=== PATIENT | female | born 1965 ===

== ENCOUNTER 2021-04-29 18:51 | Inpatient (IN) | payer OTHER, SELFPAY ==
--- NOTE | ~2021-04-29 | MR_ITS ---
EXAMINATION: MR BRAIN WITHOUT AND WITH CONTRAST CLINICAL INFORMATION: White matter hypoattenuation. COMPARISON: None available. TECHNIQUE: MRI of the brain was obtained using routine sequences without and following the administration of 5.5 mL of Gadavist intravenous contrast. FINDINGS: There is a confluent, lobulated T2 hyperintense lesion within the periventricular/deep white matter of the left frontal lobe, measuring 3.4 x 1.3 x 1.4 cm. There is no T2 signal suppression on FLAIR imaging. This lesion is inherently T1 hypointense without associated susceptibility artifact or enhancement. Few additional scattered nonspecific periventricular and deep white matter T2 FLAIR hyperintensities. No overtly associated mass effect. There is a 0.6 cm T2 hyperintense cystic structure in the right anterior aspect of the sella turcica. No definitively demonstrated associated enhancement on limited evaluation. No focal restricted diffusion is demonstrated to suggest acute or subacute cerebral ischemia. No evidence of acute or chronic hemorrhagic products on heme-sensitive imaging. The ventricles are normal in morphology and size. No midline shift. No abnormalities of the posterior fossa with normal appearance of the brainstem and cerebellum. Normal arterial and venous vascular flow voids are present. No abnormal contrast enhancement. Normal, homogeneous marrow signal. Mild mucosal thickening of the paranasal sinuses. No signal abnormalities within the mastoids. MR/MR head/brain wo/w con IMPRESSION: 1. There is a 3.4 cm relatively well marginated T2 hyperintense lesion centered in the deep white matter of the left frontal lobe. No associated enhancement. The etiology of this lesion remains somewhat nonspecific. An underlying low-grade glioma is a distinct consideration. However, an atypical appearance of nonspecific white matter insult could also be considered. A giant tumefactive perivascular space is considered less likely given the lack of T2 FLAIR suppression. 2. No acute intracranial abnormalities. No abnormal intracranial enhancement. Few additional nonspecific scattered white matter changes.
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
[2021-04-29 22:10] VITALS: BMI 21.4
[2021-04-29] MEDS: Baclofen 10 MG TABLET 5 MG PO (22:50)
[2021-04-29] MEDS: Gabapentin 400 MG CAPSULE PO (22:51)
[2021-04-29] MEDS: LORazepam 1 MG TABLET PO (22:54)
[2021-04-29 23:29] VITALS: BP 121/62; PULSE 100; TEMP 37.1; O2SAT 97
[2021-04-30 06:00] VITALS: BP 113/57; PULSE 87; RESP 18; TEMP 35.9; O2SAT 99
[2021-04-30 07:15] LABS: MANUAL DIFF FLAG NO
[2021-04-30 07:24] LABS: Basophils Absolute Auto 0.1 X10*3/uL (0.0-0.2); Eosinophils Absolute Auto 0.3 X10*3/uL (0.0-0.4); Eosinophils Percent Auto 4.4 % (0-4); Hematocrit 38.2 % (37-47); Hemoglobin 13.3 g/dl (12.0-16.0); Imm Gran Abs Auto 0.04 X10*3/uL (0.00-0.03); Imm Gran Pct Auto 0.6 % (0.0-0.4); Lymphocytes Absolute Auto 1.9 X10*3/uL (1.2-4.9); Mean Corpuscular HGB Conc 34.8 g/dl (31.0-35.0); Mean Corpuscular Hemoglobin 32.7 pg (27.0-33.0); Mean Corpuscular Volume 93.9 fL (80-98); Mean Platelet Volume 9.4 fL (9.4-12.3); Monocytes Absolute Auto 0.6 X10*3/uL (0.1-1.2); Neutrophils Absolute Auto 3.3 X10*3/uL (2.0-8.3); Platelet Count 276 X10*3/uL (160-400); Red Blood Count 4.07 X10*6/uL (4.20-5.50); Red Cell Distribution Width 12.1 % (11.0-16.0); White Blood Count 6.2 X10*3/uL (4.8-10.8)
[2021-04-30 07:45] LABS: Alanine Aminotransferase 34 U/L (0-31); Albumin Level 4.1 g/dL (3.5-5.0); Alkaline Phosphatase 50 U/L (39-117); Anion Gap 13 (12-20); Aspartate Amino Transferase 23 U/L (5-31); Bilirubin Total 0.8 mg/dL (0.0-1.0); Blood Urea Nitrogen 18 mg/dL (9-16); Calcium 9.6 mg/dL (8.4-10.2); Carbon Dioxide 30 mmol/L (22-29); Chloride 100 mmol/L (96-108); Cholesterol 203 mg/dL; Creatinine Clr Calc Pharmacy 87.7; Estimated Glomerular Filt Rate > 60; Glucose Fasting 96 mg/dL (60-99); HDL Cholesterol 64 mg/dL; LDL Cholesterol Calculated 130 mg/dl; Potassium 4.6 mmol/L (3.3-5.1); Sodium 138 mmol/L (135-145); Total Protein 6.4 g/dL (6.5-8.0); Triglycerides 48 mg/dL
[2021-04-30 08:38] LABS: Estimated Average Glucose 103 mg/dL; Hemoglobin A1c % 5.2 %
[2021-04-30] MEDS: Baclofen 10 MG TABLET 5 MG PO ×3 (08:57→21:32)
[2021-04-30] MEDS: Gabapentin 400 MG CAPSULE PO ×3 (08:57→21:32)
[2021-04-30] MEDS: QUEtiapine Fumarate 25 MG TABLET PO (08:57)
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
[2021-04-30] MEDS: DULoxetine HCl 20 MG CAPSULE.DR PO (21:32)
[2021-05-01] MEDS: traZODone HCL 50 MG TABLET PO (02:40)
[2021-05-01 06:00] VITALS: BP 110/57; PULSE 95; RESP 16; TEMP 36.8; O2SAT 97
[2021-05-01] MEDS: QUEtiapine Fumarate 25 MG TABLET PO (09:15)
[2021-05-01] MEDS: Gabapentin 400 MG CAPSULE PO ×3 (09:15→21:37)
[2021-05-01] MEDS: Baclofen 10 MG TABLET 5 MG PO ×3 (09:15→21:37)
--- NOTE | 2021-05-01 10:26 | CONS_ITS ---
DATE OF SERVICE: 04/30/2021 REASON FOR CONSULTATION: Medical management for numbness, tingling, and photophobia. HISTORY OF PRESENTING ILLNESS: This is a 55-year-old female patient with past medical history of anxiety, PTSD, and status post hysterectomy due to endometrial hyperplasia who was discharged from [facility] after requiring inpatient hospitalization due to overdose on multiple medications including gabapentin, baclofen, and Seroquel. The patient was subsequently extubated. During hospitalization, she had multiple electrolyte abnormalities including hypernatremia, hypokalemia, and leukocytosis. A CAT scan of the head showed a focal periventricular white matter hypoattenuation in the left frontal lobe. The patient was recommended to undergo MRI brain for followup, but however she declined due to claustrophobia. The patient has been transferred to [facility] due to depression, suicidal ideation with underlying history of anxiety and PTSD. At the present time, the patient is complaining of photophobia and she is complaining of tingling in different parts of the body at different times. She feels cellphone and the light makes her feel hot and that is why she is trying to hide in her room. She at times also gets headaches due to exposure to cell phones. She denies underlying medical history of asthma or diabetes. PAST MEDICAL HISTORY: 1. Recent hospitalization to [facility] for suicidal ideation, status post intubation, was extubated on 04/22/2021 to general medical floor. Once the patient was medically stable, she has been transferred to . 2. History of anxiety. 3. History of PTSD. 4. History of endometrial hyperplasia, status post hysterectomy. MEDICATIONS ON ADMISSION: Baclofen 5 mg t.i.d., Cymbalta 20 mg daily, Neurontin 400 mg t.i.d., and Seroquel 25 mg daily. SOCIAL HISTORY: The patient denies history of smoking. She lives alone. 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 Denies any substance abuse. FAMILY HISTORY: The patient denies any family history of premature coronary artery disease. ALLERGIES: NO KNOWN DRUG ALLERGIES. REVIEW OF SYSTEMS: LIBRARY TECHNICIAN: Headaches only when exposed to cell phones or lights. No dizziness. CVS: Denies any chest pain or palpitation. RESPIRATORY: Denies any cough or sputum production. GI: Denies nausea, vomiting, or diarrhea. PHYSICAL EXAMINATION: GENERAL: The patient is sitting comfortably. Does not offer any acute complaints. VITAL SIGNS: Her blood pressure is 113/57, pulse of 87, respiratory rate 18, temp is 96.6, and O2 saturation 99% on room air. NECK: Supple. No JVD. No lymphadenopathy. LUNGS: Clear to auscultation bilaterally. CARDIOVASCULAR: Regular rate rhythm. No murmurs, regurg, or gallop. ABDOMEN: Soft and nontender. Bowel sounds are audible. MUSCULOSKELETAL: Normal ankle, knee, and elbow examination. No musculoskeletal deformity or swelling noted. NEUROLOGICAL: Speech is clear. No motor or sensory deficit noted. EXTREMITIES: No clubbing, cyanosis, or edema. SKIN: Without any rash. LABORATORY DATA: Showed a WBC 6.2, hemoglobin 13.3, hematocrit 38.2, and platelets 276. Sodium 138, potassium 4.6, bicarb 30, BUN 18, and creatinine of 0.64. Hemoglobin A1c 5.2. ALT 34, total cholesterol 203, and LDL 130. ASSESSMENT AND PLAN: 1. 55-year-old female patient with past medical history of anxiety and post-traumatic stress disorder, admitted to [facility] for suspected overdose on gabapentin, baclofen, and Seroquel. Status post intubation for airway protection. Subsequently, extubated on 04/22/2021, and once medically cleared, has been transferred to psychiatric floor for continued monitoring and treatment for her anxiety. 2. Numbness, increased light sensitivity and warmth intermittently in different parts of the body. Question related to her anxiety since the patient had an abnormal head CAT scan that showed periventricular white matter at hypoattenuation in the left frontal lobe. Therefore, we will obtain an MRI brain with and without contrast to rule out underlying demyelinating disease. Other differential includes white matter infarction. The patient is agreeing to undergo MRI with use of Ativan. The patient will also need a neurological evaluation. Otherwise, case discussed with Psych provider to continue current medications including gabapentin and Seroquel. 3. electrolytes currently are stable. Therefore, no further workup is warranted at this time. 4. Deep vein thrombosis prophylaxis. Recommended early ambulation. Thank you for allowing us to participate in the care of this patient. MD BRETT Martin/MILLIE / [id number] MTDEsther
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
[2021-05-01] MEDS: LORazepam 1 MG TABLET 2 MG PO (16:17)
[2021-05-01 18:00] VITALS: BP 119/69; PULSE 114; RESP 16; O2SAT 100
[2021-05-01] MEDS: Melatonin 3 MG TABLET 6 MG PO (21:35)
[2021-05-01] MEDS: OLANZapine ODT 10 MG TAB.RAPDIS 5 MG TRANSLINGU (21:35)
[2021-05-01] MEDS: DULoxetine HCl 20 MG CAPSULE.DR PO (21:36)
[2021-05-02 06:00] VITALS: BP 133/76; PULSE 123; RESP 16; O2SAT 98
[2021-05-02] MEDS: Gabapentin 400 MG CAPSULE PO ×3 (09:40→23:00)
[2021-05-02] MEDS: Baclofen 10 MG TABLET 5 MG PO ×3 (09:40→23:00)
[2021-05-02] MEDS: OLANZapine ODT 10 MG TAB.RAPDIS 5 MG TRANSLINGU ×2 (09:41→22:59)
--- NOTE | 2021-05-02 20:06 | HO.PSYCHPN ---
Subjective Subjective Date of Service: 05/02/21 Reason For Visit: Uspecified Depressive Disorder Interim History: Amairani was preoccupied with the lighting and the ways in which she is affected by cell phones and computers. She has no insight into her condition. She is taking zyprexa Medication Compliance: Yes Side effects from medications: No Mental Status Exam Mental Status Exam Narrative: Appearance: casually groomed, fair hygiene, in NAD Behavior: calm, cooperative, minimal eye contact due to light sensitivity Psychomotor: no agitation or retardation noted Speech: clear, normal rate/rhythm/volume, spontaneous TP: linear TC: somatic delusions of effects of electromagnetic field sensitivity Mood: anxious Affect:congruent SI:denies HI:denies AH/VH:denies Delusions:somatic delusions Insight/judgment:poor x 2. Memory/cog: alert, oriented x 3. impaired due to psychiatric symptoms. Thought Content: negative for Suicidal Ideation and negative for Homicidal Ideation Diagnostics Vital Signs (24Hr): Vital Signs - 24 hr 05/02/21 06:00 Pulse Rate 123 H Respiratory Rate 16 Blood Pressure 133/76 Pulse Oximetry 98 Body Mass Index 21.4 Labs Results: 04/30/21 07:03 04/30/21 07:03 Imaging Radiology Impressions: ITS Impressions Brain MRI 05/01/21 17:39 IMPRESSION: 1. There is a 3.4 cm relatively well marginated T2 hyperintense lesion centered in the deep white matter of the left frontal lobe. No associated enhancement. The etiology of this lesion remains somewhat nonspecific. An underlying low-grade glioma is a distinct consideration. However, an atypical appearance of nonspecific white matter insult could also be considered. A giant tumefactive perivascular space is considered less likely given the lack of T2 FLAIR suppression. 2. No acute intracranial abnormalities. No abnormal intracranial enhancement. Few additional nonspecific scattered white matter changes. Medications Medications Current Medications Generic Name Dose Route Start Last Admin Trade Name Freq PRN Reason Stop Dose Admin Acetaminophen 650 mg 04/29/21 20:50 Acetaminophen 325 Mg Tablet PO Q6H PRN Headache/Pain Mild Scale (1-3) Al Hydroxide/Mg Hydroxide 30 ml 04/29/21 20:50 Magnesium Hydrox/Alum Hydrox 30 Ml Oral.Susp PO Q6H PRN Heartburn/Nausea Baclofen 5 mg 04/29/21 21:00 05/02/21 14:29 Baclofen 10 Mg Tablet PO 5 mg TID TERRI Administration Bisacodyl 10 mg 04/29/21 22:04 Bisacodyl 10 Mg Supp.Rect HI BID PRN Constipation Clonazepam 0.5 mg 05/01/21 21:00 05/02/21 09:42 Clonazepam 0.5 Mg Tablet PO Not Given BID TERRI Docusate Sodium 100 mg 04/29/21 22:05 Docusate Sodium 100 Mg/10 Ml Liquid PO BID PRN Constipation Duloxetine HCl 20 mg 04/30/21 21:00 05/01/21 21:36 Duloxetine Hcl 20 Mg Capsule.Dr PO 20 mg BEDTIME TERRI Administration Gabapentin 400 mg 04/30/21 09:00 05/02/21 14:30 Gabapentin 400 Mg Capsule PO 400 mg TID TERRI Administration Hydroxyzine HCl 25 mg 04/29/21 20:50 Hydroxyzine Hcl 25 Mg Tablet PO BEDTIME PRN Anxiety Lorazepam 1 mg 04/29/21 20:52 04/29/21 22:54 Lorazepam 1 Mg Tablet PO 1 mg Q4H PRN Administration Anxiety Magnesium Hydroxide 30 ml 04/29/21 20:50 Milk Of Magnesia 30 Ml Oral.Susp PO DAILY PRN Constipation Melatonin 6 mg 05/01/21 21:00 05/01/21 21:35 Melatonin 3 Mg Tablet PO 6 mg BEDTIME TERRI Administration Nicotine Polacrilex 2 mg 04/29/21 20:50 Nicotine Polacrilex 2 Mg Gum BUCCAL Q2H PRN Nicotine Cravings Patient Own 1 each 04/30/21 21:00 05/02/21 15:45 Medication (Retaine EYE-BOTH 1 each Eye Drops) TID TERRI Administration Olanzapine 5 mg 05/01/21 21:00 05/02/21 09:41 Olanzapine Odt 10 Mg Tab.Rapdis TRANSLINGU 5 mg BID TERRI Administration Trazodone HCl 50 mg 04/29/21 20:50 05/01/21 02:40 Trazodone Hcl 50 Mg Tablet PO 50 mg BEDTIME PRN Administration Insomnia Allergies Allergies Allergy/AdvReac Type Severity Reaction Status Date / Time Unable to Assess Allergy Verified 04/29/21 20:49 Assessment & Plan Assessment & Plan (1) Delusional disorder, somatic type, first episode, currently in acute episode: Status: Acute Code(s): F22 - Delusional disorders Assessment and Plan: No change to current treatment plan Greater than 50% of the session was spent on counseling and/or coordination of care Patient educated on: diagnosis and medication risk/benefits Informed Consent: does not understand Reason for contiued inpatient stay Substantial Risk for: inability to function
[2021-05-02] MEDS: Melatonin 3 MG TABLET 6 MG PO (22:58)
[2021-05-02] MEDS: DULoxetine HCl 20 MG CAPSULE.DR PO (23:00)
--- NOTE | 2021-05-02 23:13 | PC.NURSE ---
has declined klonopin x 2 evenings.
[2021-05-02 23:18] VITALS: BP 116/66; PULSE 100; TEMP 36.5; O2SAT 95
[2021-05-03 06:00] VITALS: BP 100/49; PULSE 105; RESP 16; TEMP 36.7; O2SAT 98
[2021-05-03] MEDS: Gabapentin 400 MG CAPSULE PO ×3 (10:06→22:54)
[2021-05-03] MEDS: OLANZapine ODT 10 MG TAB.RAPDIS 5 MG TRANSLINGU ×2 (10:06→22:54)
[2021-05-03] MEDS: Baclofen 10 MG TABLET 5 MG PO ×3 (10:06→22:56)
[2021-05-03] MEDS: clonazePAM 0.5 MG TABLET PO (10:54)
--- NOTE | 2021-05-03 18:30 | HO.PSYCHPN ---
Subjective Subjective Date of Service: 05/03/21 Reason For Visit: Uspecified Depressive Disorder Interim History: Amairani remains preoccupied with her concerns about light and electromagnetic peterson. She did enjoy a visit from her family. Abnormalities in MRI noted Neuro consult pending Medication Compliance: Yes Side effects from medications: No Review of Systems Acute medical concerns: No Medical Review of Systems: unchanged Mental Status Exam Mental Status Exam Narrative: Appearance: casually groomed, fair hygiene, in NAD Behavior: calm, cooperative, minimal eye contact due to light sensitivity Psychomotor: no agitation or retardation noted Speech: clear, normal rate/rhythm/volume, spontaneous TP: linear TC: somatic delusions of effects of electromagnetic field sensitivity Mood: anxious Affect:congruent SI:denies HI:denies AH/VH:denies Delusions:somatic delusions Insight/judgment:poor x 2. Memory/cog: alert, oriented x 3. impaired due to psychiatric symptoms. Thought Content: negative for Suicidal Ideation and negative for Homicidal Ideation Diagnostics Vital Signs (24Hr): Vital Signs - 24 hr 05/02/21 23:18 05/03/21 06:00 Temperature 97.7 F 98.1 F Pulse Rate 100 105 H Respiratory Rate 16 Blood Pressure 116/66 100/49 L Pulse Oximetry 95 98 Body Mass Index 21.4 Labs Results: 04/30/21 07:03 04/30/21 07:03 Imaging Radiology Impressions: ITS Impressions Brain MRI 05/01/21 17:39 IMPRESSION: 1. There is a 3.4 cm relatively well marginated T2 hyperintense lesion centered in the deep white matter of the left frontal lobe. No associated enhancement. The etiology of this lesion remains somewhat nonspecific. An underlying low-grade glioma is a distinct consideration. However, an atypical appearance of nonspecific white matter insult could also be considered. A giant tumefactive perivascular space is considered less likely given the lack of T2 FLAIR suppression. 2. No acute intracranial abnormalities. No abnormal intracranial enhancement. Few additional nonspecific scattered white matter changes. Medications Medications Current Medications Generic Name Dose Route Start Last Admin Trade Name Freq PRN Reason Stop Dose Admin Acetaminophen 650 mg 04/29/21 20:50 Acetaminophen 325 Mg Tablet PO Q6H PRN Headache/Pain Mild Scale (1-3) Al Hydroxide/Mg Hydroxide 30 ml 04/29/21 20:50 Magnesium Hydrox/Alum Hydrox 30 Ml Oral.Susp PO Q6H PRN Heartburn/Nausea Baclofen 5 mg 04/29/21 21:00 05/03/21 14:53 Baclofen 10 Mg Tablet PO 5 mg TID TERRI Administration Bisacodyl 10 mg 04/29/21 22:04 Bisacodyl 10 Mg Supp.Rect [place] BID PRN Constipation Clonazepam 0.5 mg 05/01/21 21:00 05/03/21 10:54 Clonazepam 0.5 Mg Tablet PO 0.5 mg BID TERRI Administration Docusate Sodium 100 mg 04/29/21 22:05 Docusate Sodium 100 Mg/10 Ml Liquid PO BID PRN Constipation Duloxetine HCl 20 mg 04/30/21 21:00 05/02/21 23:00 Duloxetine Hcl 20 Mg Capsule.Dr PO 20 mg BEDTIME TERRI Administration Gabapentin 400 mg 04/30/21 09:00 05/03/21 14:53 Gabapentin 400 Mg Capsule PO 400 mg TID TERRI Administration Hydroxyzine HCl 25 mg 04/29/21 20:50 Hydroxyzine Hcl 25 Mg Tablet PO BEDTIME PRN Anxiety Lorazepam 1 mg 04/29/21 20:52 04/29/21 22:54 Lorazepam 1 Mg Tablet PO 1 mg Q4H PRN Administration Anxiety Magnesium Hydroxide 30 ml 04/29/21 20:50 Milk Of Magnesia 30 Ml Oral.Susp PO DAILY PRN Constipation Melatonin 6 mg 05/01/21 21:00 05/02/21 22:58 Melatonin 3 Mg Tablet PO 6 mg BEDTIME TERRI Administration Nicotine Polacrilex 2 mg 04/29/21 20:50 Nicotine Polacrilex 2 Mg Gum BUCCAL Q2H PRN Nicotine Cravings Patient Own 1 each 04/30/21 21:00 05/03/21 14:54 Medication (Retaine EYE-BOTH 1 each Eye Drops) TID TERRI Administration Olanzapine 5 mg 05/01/21 21:00 05/03/21 10:06 Olanzapine Odt 10 Mg Tab.Rapdis TRANSLINGU 5 mg BID TERRI Administration Trazodone HCl 50 mg 04/29/21 20:50 05/01/21 02:40 Trazodone Hcl 50 Mg Tablet PO 50 mg BEDTIME PRN Administration Insomnia Allergies Allergies Allergy/AdvReac Type Severity Reaction Status Date / Time Unable to Assess Allergy Verified 04/29/21 20:49 Assessment & Plan Assessment & Plan (1) Delusional disorder, somatic type, first episode, currently in acute episode: Status: Acute Code(s): F22 - Delusional disorders Assessment and Plan: No change to current treatment plan Greater than 50% of the session was spent on counseling and/or coordination of care Patient educated on: diagnosis and medication risk/benefits Reason for contiued inpatient stay Substantial Risk for: inability to function and rapid decompensation
[2021-05-03] MEDS: Melatonin 3 MG TABLET 6 MG PO (22:55)
[2021-05-03] MEDS: DULoxetine HCl 20 MG CAPSULE.DR PO (22:56)
[2021-05-03 22:59] VITALS: TEMP 36.7
--- NOTE | 2021-05-04 07:15 | HO.PSYCHPN ---
Subjective Subjective Date of Service: 05/05/21 Reason For Visit: Uspecified Depressive Disorder Interim History: Amairani reports that she has tried to be more visible in the unit but light sensitivity is severe. She reports in terms of mood she feels less anxious. She is also superficially cooperative in that she may be minimizing degree of distress due to her ongoing believe that she is being attack by electromagnetic peterson. She denies SI/HI. Sister voices safety concerns in terms of pt not forthcoming about suicidal thoughts and feeling more hopeless than she may admit. Review of Systems Cardiovascular: Denies chest pain, Denies rapid heart rate, Denies irregular heart rhythm, Denies lightheadedness and Denies dyspnea Respiratory: Denies dyspnea Gastrointestinal: Denies constipation and Denies diarrhea Musculoskeletal: Reports numbness and Reports tingling Reports numbness, Reports Other visual disturbances (light sensitivity), Reports tingling and Reports paresthesias Mental Status Exam Mental Status Exam Narrative: Appearance: casually groomed, fair hygiene, in NAD Behavior: calm, cooperative, minimal eye contact due to light sensitivity Psychomotor: no agitation or retardation noted Speech: clear, normal rate/rhythm/volume, spontaneous TP: linear TC: somatic delusions of effects of electromagnetic field sensitivity Mood: anxious Affect:congruent SI:denies HI:denies AH/VH:denies Delusions:somatic delusions Insight/judgment:poor x 2. Memory/cog: alert, oriented x 3. impaired due to psychiatric symptoms. Diagnostics Vital Signs (24Hr): Vital Signs - 24 hr 05/04/21 08:56 05/04/21 18:00 Temperature 97.0 F 98.3 F Pulse Rate 105 H 91 Respiratory Rate 18 24 H Blood Pressure 115/63 100/62 Pulse Oximetry 97 99 Body Mass Index 21.4 Labs Results: 04/30/21 07:03 04/30/21 07:03 Imaging Radiology Impressions: ITS Impressions Brain MRI 05/01/21 17:39 IMPRESSION: 1. There is a 3.4 cm relatively well marginated T2 hyperintense lesion centered in the deep white matter of the left frontal lobe. No associated enhancement. The etiology of this lesion remains somewhat nonspecific. An underlying low-grade glioma is a distinct consideration. However, an atypical appearance of nonspecific white matter insult could also be considered. A giant tumefactive perivascular space is considered less likely given the lack of T2 FLAIR suppression. 2. No acute intracranial abnormalities. No abnormal intracranial enhancement. Few additional nonspecific scattered white matter changes. Medications Medications Current Medications Generic Name Dose Route Start Last Admin Trade Name Freq PRN Reason Stop Dose Admin Acetaminophen 650 mg 04/29/21 20:50 Acetaminophen 325 Mg Tablet PO Q6H PRN Headache/Pain Mild Scale (1-3) Al Hydroxide/Mg Hydroxide 30 ml 04/29/21 20:50 Magnesium Hydrox/Alum Hydrox 30 Ml Oral.Susp PO Q6H PRN Heartburn/Nausea Baclofen 5 mg 04/29/21 21:00 05/04/21 21:29 Baclofen 10 Mg Tablet PO 5 mg TID TERRI Administration Bisacodyl 10 mg 04/29/21 22:04 Bisacodyl 10 Mg Supp.Rect [place] BID PRN Constipation Clonazepam 0.5 mg 05/01/21 21:00 05/04/21 21:37 Clonazepam 0.5 Mg Tablet PO Not Given BID TERRI Docusate Sodium 100 mg 04/29/21 22:05 Docusate Sodium 100 Mg/10 Ml Liquid PO BID PRN Constipation Duloxetine HCl 20 mg 04/30/21 21:00 05/04/21 21:28 Duloxetine Hcl 20 Mg Capsule.Dr PO 20 mg BEDTIME TERRI Administration Gabapentin 400 mg 04/30/21 09:00 05/04/21 21:30 Gabapentin 400 Mg Capsule PO 400 mg TID TERRI Administration Hydroxyzine HCl 25 mg 04/29/21 20:50 Hydroxyzine Hcl 25 Mg Tablet PO BEDTIME PRN Anxiety Magnesium Hydroxide 30 ml 04/29/21 20:50 Milk Of Magnesia 30 Ml Oral.Susp PO DAILY PRN Constipation Melatonin 6 mg 05/01/21 21:00 05/04/21 21:28 Melatonin 3 Mg Tablet PO 6 mg BEDTIME TERRI Administration Nicotine Polacrilex 2 mg 04/29/21 20:50 Nicotine Polacrilex 2 Mg Gum BUCCAL Q2H PRN Nicotine Cravings Patient Own 1 each 04/30/21 21:00 05/04/21 21:30 Medication (Retaine EYE-BOTH 1 each Eye Drops) TID TERRI Administration Olanzapine 5 mg 05/01/21 21:00 05/04/21 21:28 Olanzapine Odt 10 Mg Tab.Rapdis TRANSLINGU 5 mg BID TERRI Administration Trazodone HCl 50 mg 04/29/21 20:50 05/05/21 02:00 Trazodone Hcl 50 Mg Tablet PO 50 mg BEDTIME PRN Administration Insomnia Allergies Allergies Allergy/AdvReac Type Severity Reaction Status Date / Time Unable to Assess Allergy Verified 04/29/21 20:49 Assessment & Plan Assessment & Plan (1) Delusional disorder, somatic type, first episode, currently in acute episode: Status: Acute Code(s): F22 - Delusional disorders Assessment and Plan: 1. continue current medications 2. pending neurology consult Greater than 50% of the session was spent on counseling and/or coordination of care Reason for contiued inpatient stay Substantial Risk for: harm to self
[2021-05-04 08:56] VITALS: BP 115/63; PULSE 105; RESP 18; TEMP 36.1; O2SAT 97
[2021-05-04] MEDS: Baclofen 10 MG TABLET 5 MG PO ×3 (09:00→21:29)
[2021-05-04] MEDS: Gabapentin 400 MG CAPSULE PO ×3 (09:00→21:30)
[2021-05-04] MEDS: OLANZapine ODT 10 MG TAB.RAPDIS 5 MG TRANSLINGU ×2 (09:00→21:28)
[2021-05-04] MEDS: clonazePAM 0.5 MG TABLET PO (09:01)
[2021-05-04 18:00] VITALS: BP 100/62; PULSE 91; RESP 24; TEMP 36.8; O2SAT 99
[2021-05-04] MEDS: DULoxetine HCl 20 MG CAPSULE.DR PO (21:28)
[2021-05-04] MEDS: Melatonin 3 MG TABLET 6 MG PO (21:28)
[2021-05-05] MEDS: traZODone HCL 50 MG TABLET PO (02:00)
[2021-05-05] MEDS: Gabapentin 400 MG CAPSULE PO ×3 (08:27→22:37)
[2021-05-05] MEDS: OLANZapine ODT 10 MG TAB.RAPDIS 5 MG TRANSLINGU ×2 (08:27→22:35)
[2021-05-05] MEDS: Baclofen 10 MG TABLET 5 MG PO ×3 (08:27→22:37)
[2021-05-05] MEDS: clonazePAM 0.5 MG TABLET PO (08:29)
--- NOTE | 2021-05-05 09:12 | HO.PSYCHPN ---
Subjective Subjective Date of Service: 05/07/21 Reason For Visit: Uspecified Depressive Disorder Interim History: Amairani reports that she continues to experience light sensitivity/dry eyes, which pt reports is worse with olanzapine. She reports tingling all over her body. She reports in terms of mood she is calmer, less overwhelmed but worries if she stays here in hospital longer, electromagnetic sensitivity will get worse. She states her physical symptoms are due to electric waves attacking her body. She denies SI/HI. She reports she had gun license for several years but does not have a gun. Review of Systems Review of Systems As detailed in her previous history is Cardiovascular: Denies chest pain, Denies rapid heart rate, Denies irregular heart rhythm, Denies lightheadedness and Denies dyspnea Respiratory: Denies dyspnea Gastrointestinal: Denies constipation and Denies diarrhea Musculoskeletal: Reports numbness and Reports tingling Reports numbness, Reports Other visual disturbances (light sensitivity), Reports tingling and Reports paresthesias Mental Status Exam Mental Status Exam Narrative: Appearance: casually groomed, fair hygiene, in NAD Behavior: calm, cooperative, minimal eye contact due to light sensitivity Psychomotor: no agitation or retardation noted Speech: clear, normal rate/rhythm/volume, spontaneous TP: linear TC: somatic delusions of effects of electromagnetic field sensitivity Mood: anxious Affect:congruent SI:denies HI:denies AH/VH:denies Delusions:somatic delusions Insight/judgment:poor x 2. Memory/cog: alert, oriented x 3. impaired due to psychiatric symptoms. Diagnostics Vital Signs (24Hr): Vital Signs - 24 hr 05/06/21 21:33 05/07/21 06:00 Pulse Rate 105 H 83 Respiratory Rate 20 16 Blood Pressure 114/57 L 105/60 Pulse Oximetry 97 97 Body Mass Index 21.4 Labs Results: 04/30/21 07:03 04/30/21 07:03 Imaging Radiology Impressions: ITS Impressions Brain MRI 05/01/21 17:39 IMPRESSION: 1. There is a 3.4 cm relatively well marginated T2 hyperintense lesion centered in the deep white matter of the left frontal lobe. No associated enhancement. The etiology of this lesion remains somewhat nonspecific. An underlying low-grade glioma is a distinct consideration. However, an atypical appearance of nonspecific white matter insult could also be considered. A giant tumefactive perivascular space is considered less likely given the lack of T2 FLAIR suppression. 2. No acute intracranial abnormalities. No abnormal intracranial enhancement. Few additional nonspecific scattered white matter changes. Medications Medications Current Medications Generic Name Dose Route Start Last Admin Trade Name Freq PRN Reason Stop Dose Admin Acetaminophen 650 mg 04/29/21 20:50 Acetaminophen 325 Mg Tablet PO Q6H PRN Headache/Pain Mild Scale (1-3) Al Hydroxide/Mg Hydroxide 30 ml 04/29/21 20:50 Magnesium Hydrox/Alum Hydrox 30 Ml Oral.Susp PO Q6H PRN Heartburn/Nausea Baclofen 5 mg 04/29/21 21:00 05/06/21 22:05 Baclofen 10 Mg Tablet PO 5 mg TID TERRI Administration Bisacodyl 10 mg 04/29/21 22:04 Bisacodyl 10 Mg Supp.Rect [place] BID PRN Constipation Docusate Sodium 100 mg 04/29/21 22:05 Docusate Sodium 100 Mg/10 Ml Liquid PO BID PRN Constipation Gabapentin 400 mg 04/30/21 09:00 05/06/21 22:06 Gabapentin 400 Mg Capsule PO 400 mg TID TERRI Administration Haloperidol 2 mg 05/07/21 09:00 Haloperidol 1 Mg Tablet PO BID TERRI Hydroxyzine HCl 25 mg 04/29/21 20:50 Hydroxyzine Hcl 25 Mg Tablet PO BEDTIME PRN Anxiety Magnesium Hydroxide 30 ml 04/29/21 20:50 Milk Of Magnesia 30 Ml Oral.Susp PO DAILY PRN Constipation Melatonin 6 mg 05/01/21 21:00 05/06/21 22:05 Melatonin 3 Mg Tablet PO 6 mg BEDTIME TERRI Administration Nicotine Polacrilex 2 mg 04/29/21 20:50 Nicotine Polacrilex 2 Mg Gum BUCCAL Q2H PRN Nicotine Cravings Patient Own 1 each 04/30/21 21:00 05/06/21 22:06 Medication (Retaine EYE-BOTH 1 each Eye Drops) TID TERRI Administration Trazodone HCl 50 mg 04/29/21 20:50 05/05/21 02:00 Trazodone Hcl 50 Mg Tablet PO 50 mg BEDTIME PRN Administration Insomnia Allergies Allergies Allergy/AdvReac Type Severity Reaction Status Date / Time Unable to Assess Allergy Verified 04/29/21 20:49 Assessment & Plan Assessment & Plan (1) Brain lesion: Status: Acute Code(s): G93.9 - Disorder of brain, unspecified Assessment and Plan: 55 years old woman with incidental finding of a left hemispheric brain lesion. As outlined in Radiology report, it was nonspecific in nature with multiple possibilities. At the same time it was relatively clear that this was a chronic lesion. A chronic ischemic infarction was also a possibility. In any case this lesion was not symptomatic and not the cause of her problems. Otherwise there was no significant finding on brain imaging. Typical recommendation for this type of lesion is to repeat brain scan in a year time, at least couple of times. After that, if lesion does not change, imaging can be done less frequently. No immediate action is needed on this finding at this time. Greater than 50% of the session was spent on counseling and/or coordination of care Reason for contiued inpatient stay Substantial Risk for: harm to self and inability to function
[2021-05-05 10:52] VITALS: BP 110/56; PULSE 112
[2021-05-05] MEDS: DULoxetine HCl 20 MG CAPSULE.DR PO (22:36)
[2021-05-05] MEDS: Melatonin 3 MG TABLET 6 MG PO (22:36)
[2021-05-05 22:52] VITALS: BP 100/58; PULSE 105; TEMP 36.9; O2SAT 99
[2021-05-06 09:03] VITALS: BP 106/62; PULSE 60; RESP 16; TEMP 37.1; O2SAT 97
--- NOTE | 2021-05-06 09:16 | HO.PSYCHPN ---
Subjective Subjective Date of Service: 05/07/21 Reason For Visit: Uspecified Depressive Disorder Interim History: Amairani continues to stay in bed, she reports not being able to go to unit because of light sensitivity. She also reports dry eyes. She asked for warm compresses- she does have blepharitis. She continues to report that electromagnetic sensitivity is cause of her physical symptoms. She does not want to be around cell phones, or computers, or electrical towers. She denies SI/HI. We discussed switching olanzapine to haldol due to increase s/e of anticholinergic and switch to antipsychotic with less anticholigernic s/e. Review of Systems Review of Systems As detailed in her previous history is Cardiovascular: Denies chest pain, Denies rapid heart rate, Denies irregular heart rhythm, Denies lightheadedness and Denies dyspnea Respiratory: Denies dyspnea Gastrointestinal: Denies constipation and Denies diarrhea Musculoskeletal: Reports numbness and Reports tingling Reports numbness, Reports Other visual disturbances (light sensitivity), Reports tingling and Reports paresthesias Mental Status Exam Mental Status Exam Narrative: Appearance: casually groomed, fair hygiene, in NAD Behavior: calm, cooperative, minimal eye contact due to light sensitivity Psychomotor: no agitation or retardation noted Speech: clear, normal rate/rhythm/volume, spontaneous TP: linear TC: somatic delusions of effects of electromagnetic field sensitivity Mood: anxious Affect:congruent SI:denies HI:denies AH/VH:denies Delusions:somatic delusions Insight/judgment:poor x 2. Memory/cog: alert, oriented x 3. impaired due to psychiatric symptoms. Diagnostics Vital Signs (24Hr): Vital Signs - 24 hr 05/06/21 21:33 05/07/21 06:00 Pulse Rate 105 H 83 Respiratory Rate 20 16 Blood Pressure 114/57 L 105/60 Pulse Oximetry 97 97 Body Mass Index 21.4 Labs Results: 04/30/21 07:03 04/30/21 07:03 Imaging Radiology Impressions: ITS Impressions Brain MRI 05/01/21 17:39 IMPRESSION: 1. There is a 3.4 cm relatively well marginated T2 hyperintense lesion centered in the deep white matter of the left frontal lobe. No associated enhancement. The etiology of this lesion remains somewhat nonspecific. An underlying low-grade glioma is a distinct consideration. However, an atypical appearance of nonspecific white matter insult could also be considered. A giant tumefactive perivascular space is considered less likely given the lack of T2 FLAIR suppression. 2. No acute intracranial abnormalities. No abnormal intracranial enhancement. Few additional nonspecific scattered white matter changes. Medications Medications Current Medications Generic Name Dose Route Start Last Admin Trade Name Freq PRN Reason Stop Dose Admin Acetaminophen 650 mg 04/29/21 20:50 Acetaminophen 325 Mg Tablet PO Q6H PRN Headache/Pain Mild Scale (1-3) Al Hydroxide/Mg Hydroxide 30 ml 04/29/21 20:50 Magnesium Hydrox/Alum Hydrox 30 Ml Oral.Susp PO Q6H PRN Heartburn/Nausea Baclofen 5 mg 04/29/21 21:00 05/06/21 22:05 Baclofen 10 Mg Tablet PO 5 mg TID TERRI Administration Bisacodyl 10 mg 04/29/21 22:04 Bisacodyl 10 Mg Supp.Rect VA BID PRN Constipation Docusate Sodium 100 mg 04/29/21 22:05 Docusate Sodium 100 Mg/10 Ml Liquid PO BID PRN Constipation Gabapentin 400 mg 04/30/21 09:00 05/06/21 22:06 Gabapentin 400 Mg Capsule PO 400 mg TID TERRI Administration Haloperidol 2 mg 05/07/21 09:00 Haloperidol 1 Mg Tablet PO BID TERRI Hydroxyzine HCl 25 mg 04/29/21 20:50 Hydroxyzine Hcl 25 Mg Tablet PO BEDTIME PRN Anxiety Magnesium Hydroxide 30 ml 04/29/21 20:50 Milk Of Magnesia 30 Ml Oral.Susp PO DAILY PRN Constipation Melatonin 6 mg 05/01/21 21:00 05/06/21 22:05 Melatonin 3 Mg Tablet PO 6 mg BEDTIME TERRI Administration Nicotine Polacrilex 2 mg 04/29/21 20:50 Nicotine Polacrilex 2 Mg Gum BUCCAL Q2H PRN Nicotine Cravings Patient Own 1 each 04/30/21 21:00 05/06/21 22:06 Medication (Retaine EYE-BOTH 1 each Eye Drops) TID TERRI Administration Trazodone HCl 50 mg 04/29/21 20:50 05/05/21 02:00 Trazodone Hcl 50 Mg Tablet PO 50 mg BEDTIME PRN Administration Insomnia Allergies Allergies Allergy/AdvReac Type Severity Reaction Status Date / Time Unable to Assess Allergy Verified 04/29/21 20:49 Assessment & Plan Assessment & Plan (1) Brain lesion: Status: Acute Code(s): G93.9 - Disorder of brain, unspecified Assessment and Plan: 55 years old woman with incidental finding of a left hemispheric brain lesion. As outlined in Radiology report, it was nonspecific in nature with multiple possibilities. At the same time it was relatively clear that this was a chronic lesion. A chronic ischemic infarction was also a possibility. In any case this lesion was not symptomatic and not the cause of her problems. Otherwise there was no significant finding on brain imaging. Typical recommendation for this type of lesion is to repeat brain scan in a year time, at least couple of times. After that, if lesion does not change, imaging can be done less frequently. No immediate action is needed on this finding at this time. (2) Delusional disorder, somatic type, first episode, currently in acute episode: Status: Acute Code(s): F22 - Delusional disorders Assessment and Plan: 1. switch to haldol 2mg po BID. (3) Blepharitis: Status: Acute Code(s): H01.009 - Unspecified blepharitis unspecified eye, unspecified eyelid Greater than 50% of the session was spent on counseling and/or coordination of care Reason for contiued inpatient stay Substantial Risk for: harm to self and inability to function
[2021-05-06] MEDS: Baclofen 10 MG TABLET 5 MG PO ×3 (10:06→22:05)
[2021-05-06] MEDS: OLANZapine ODT 10 MG TAB.RAPDIS 5 MG TRANSLINGU (10:08)
[2021-05-06] MEDS: Gabapentin 400 MG CAPSULE PO ×3 (10:08→22:06)
--- NOTE | 2021-05-06 10:54 | PM.NEUROCN ---
History of Present Illness Data of Consult Service Date: 05/06/21 Primary Care Provider: Unknown Physician 55 years old woman I was asked to see for an abnormal brain MRI. She was admitted on psychiatric floor after she presented with suicidal attempt with multiple prescription medicines. There was no sign of any seizure disorder any focal weakness. Review of Systems Review of Systems: As detailed in her previous history is [facility] Social History Social History Household Members: None Household Members Other:: 0 Housing: Condominium Do you presently have visiting nurse or other home services: No Patient Tobacco Use Status: Never used Tobacco Smoked in Last 30 Days: No Patient Interested in Nicotine Replacement: No Patient Given Instructions on How to Stop Smoking: No Second Hand Smoke Exposure: No Use of substances other than those prescribed or required for medical reasons: No Substance Use Type Other:: 3 years ago jam Last Used Substance: Unknown Currently Displaying Signs/Symptoms of Drug Intoxication Withdrawal: No Other Past Substance Use Problem:: Over use of alcohol Any prior treatment program specific to substance use: No Have you been hit, kicked, punched, or otherwise hurt by someone within the past year? If so, by whom?: No Do you feel safe in your current relationship?: No Current Relationship Is there a partner from a previous relationship who is making you feel unsafe now?: No Are you made to feel afraid or neglected: No Spiritual Healthcare Practices: It's been a while, [employer]ond[employer]ational [employer] Healthcare Practices: None Cultural Healthcare Practices: None Advance Directives: No Advance Directives Information Provided: No Advance Directives on File: No Do you have thoughts of harming others: None Do you have a plan to hurt others: No Plan Recently lost weight without trying: Yes How much weight loss: 2-13 pounds Eating poorly because of decreased appetite: No Nutrition screen score: 3 Nutrition Risks: No Nutritional Risk Patient : No : No Poor oral hygiene: No service: No Sexual orientation: Straight/Heterosexual Meds Allergies Allergy/AdvReac Type Severity Reaction Status Date / Time Unable to Assess Allergy Verified 04/29/21 20:49 Active Medications: Current Medications Generic Name Dose Route Start Last Admin Trade Name Freq PRN Reason Stop Dose Admin Acetaminophen 650 mg 04/29/21 20:50 Acetaminophen 325 Mg Tablet PO Q6H PRN Headache/Pain Mild Scale (1-3) Al Hydroxide/Mg Hydroxide 30 ml 04/29/21 20:50 Magnesium Hydrox/Alum Hydrox 30 Ml Oral.Susp PO Q6H PRN Heartburn/Nausea Baclofen 5 mg 04/29/21 21:00 05/06/21 10:06 Baclofen 10 Mg Tablet PO 5 mg TID TERRI Administration Bisacodyl 10 mg 04/29/21 22:04 Bisacodyl 10 Mg Supp.Rect DE BID PRN Constipation Clonazepam 0.5 mg 05/01/21 21:00 05/06/21 10:08 Clonazepam 0.5 Mg Tablet PO Not Given BID TERRI Docusate Sodium 100 mg 04/29/21 22:05 Docusate Sodium 100 Mg/10 Ml Liquid PO BID PRN Constipation Duloxetine HCl 20 mg 04/30/21 21:00 05/05/21 22:36 Duloxetine Hcl 20 Mg Capsule.Dr PO 20 mg BEDTIME TERRI Administration Gabapentin 400 mg 04/30/21 09:00 05/06/21 10:08 Gabapentin 400 Mg Capsule PO 400 mg TID TERRI Administration Hydroxyzine HCl 25 mg 04/29/21 20:50 Hydroxyzine Hcl 25 Mg Tablet PO BEDTIME PRN Anxiety Magnesium Hydroxide 30 ml 04/29/21 20:50 Milk Of Magnesia 30 Ml Oral.Susp PO DAILY PRN Constipation Melatonin 6 mg 05/01/21 21:00 05/05/21 22:36 Melatonin 3 Mg Tablet PO 6 mg BEDTIME TERRI Administration Nicotine Polacrilex 2 mg 04/29/21 20:50 Nicotine Polacrilex 2 Mg Gum BUCCAL Q2H PRN Nicotine Cravings Patient Own 1 each 04/30/21 21:00 05/05/21 22:46 Medication (Retaine EYE-BOTH 1 each Eye Drops) TID TERRI Administration Olanzapine 5 mg 05/01/21 21:00 05/06/21 10:08 Olanzapine Odt 10 Mg Tab.Rapdis TRANSLINGU 5 mg BID TERRI Administration Trazodone HCl 50 mg 04/29/21 20:50 05/05/21 02:00 Trazodone Hcl 50 Mg Tablet PO 50 mg BEDTIME PRN Administration Insomnia Home Medications Medication Instructions Recorded Confirmed Last Taken Type Artificial Tears 2 drp INTRAOCULAR QID PRN 04/29/21 04/29/21 Unknown History Colace 100 mg PO BID PRN 04/29/21 04/29/21 Unknown History Oculocin 1 drp INTRAOCULAR BID 04/29/21 04/29/21 07:55 History Retaine VISION 1 drp INTRAOCULAR TID 04/29/21 04/29/21 04/29/21 07:55 History baclofen 5 mg PO TID 04/29/21 04/29/21 04/29/21 07:50 History bisacodyl 10 mg BID PRN 04/29/21 04/29/21 Unknown History duloxetine 20 mg PO DAILY 04/29/21 04/29/21 04/28/21 08:30 History gabapentin 400 mg PO TID 04/29/21 04/29/21 04/29/21 07:51 History melatonin 6 mg PO 04/29/21 Unknown History quetiapine 25 mg PO DAILY 04/29/21 04/29/21 04/29/21 07:50 History Physical Exam Vital Signs: Vital Signs: Last Vital Signs Temp 98.7 F 05/06/21 09:03 Pulse 60 05/06/21 09:03 Resp 16 05/06/21 09:03 BP 106/62 05/06/21 09:03 Pulse Ox 97 05/06/21 09:03 Body Mass Index 21.4 She was alert and awake with normal spontaneity of speech fluency comprehension and affect. Pupils were equal and reactive to light and extraocular muscles were intact. Visual peterson are full to confrontation. Face was symmetrical. There was no pronator drift. [id number] testing was normal. There was no visual or sensory or spatial extinction. Deep tendon reflexes 1+ with flexor plantars. Speech was normal. Results Labs CBC & Chem 7: 04/30/21 07:03 04/30/21 07:03 Labs: Her MRI of brain was reviewed. It revealed a moderate-size left frontal subcortical white matter area lesion that was hyperintense on T2 and hypo on T1 with no enhancement and isointense on DWI. Margins were distinct. There were couple of adjust sent punctate hyperintensities. Assessment and Plan (1) Brain lesion: Status: Acute 55 years old woman with incidental finding of a left hemispheric brain lesion. As outlined in Radiology report, it was nonspecific in nature with multiple possibilities. At the same time it was relatively clear that this was a chronic lesion. A chronic ischemic infarction was also a possibility. In any case this lesion was not symptomatic and not the cause of her problems. Otherwise there was no significant finding on brain imaging. Typical recommendation for this type of lesion is to repeat brain scan in a year time, at least couple of times. After that, if lesion does not change, imaging can be done less frequently. No immediate action is needed on this finding at this time. Procedures Date of Service Date of Service: 05/06/21
[2021-05-06 21:33] VITALS: BP 114/57; PULSE 105; RESP 20; O2SAT 97
[2021-05-06] MEDS: Melatonin 3 MG TABLET 6 MG PO (22:05)
[2021-05-07 06:00] VITALS: BP 105/60; PULSE 83; RESP 16; O2SAT 97
[2021-05-07] MEDS: HaloperidoL 1 MG TABLET 2 MG PO ×2 (09:37→21:36)
[2021-05-07] MEDS: Baclofen 10 MG TABLET 5 MG PO ×3 (09:37→21:37)
[2021-05-07] MEDS: Gabapentin 400 MG CAPSULE PO ×3 (09:38→21:36)
--- NOTE | 2021-05-07 11:39 | HO.PSYCHPN ---
Subjective Subjective Date of Service: 05/11/21 Reason For Visit: Uspecified Depressive Disorder Interim History: Pt reports tension of jaw, jittery two days after cymbalta was discontinued. She does appear to have some degree of dystonia, most likely related to haldol. Pt reports feeling anxious, not suicidal, continues to report electromagnetic sensitivity. She reports fair sleep. Mostly in her bed, minimally interactive with peers. No behavioral concerns. Review of Systems Review of Systems unremarkable Cardiovascular: Denies chest pain, Denies rapid heart rate, Denies irregular heart rhythm, Denies lightheadedness and Denies dyspnea Respiratory: Denies dyspnea Gastrointestinal: Denies constipation and Denies diarrhea Musculoskeletal: Reports numbness and Reports tingling Reports numbness, Reports Other visual disturbances (light sensitivity), Reports tingling and Reports paresthesias Mental Status Exam Mental Status Exam Narrative: Appearance: casually groomed, fair hygiene, in NAD Behavior: calm, cooperative, minimal eye contact due to light sensitivity Psychomotor: no agitation or retardation noted Speech: clear, normal rate/rhythm/volume, spontaneous TP: linear TC: somatic delusions of effects of electromagnetic field sensitivity Mood: anxious Affect:congruent SI:denies HI:denies AH/VH:denies Delusions:somatic delusions Insight/judgment:poor x 2. Memory/cog: alert, oriented x 3. impaired due to psychiatric symptoms. Diagnostics Vital Signs (24Hr): Vital Signs - 24 hr 05/10/21 20:26 Temperature 97.5 F Pulse Rate 98 Blood Pressure 111/57 L Pulse Oximetry 99 Body Mass Index 21.4 Labs Results: 04/30/21 07:03 04/30/21 07:03 Labs: Laboratory Results - last 48 hr 05/07/21 13:51 SS-A/Ro Antibody <1.0 NEG SS-B/La Antibody <1.0 NEG Imaging Radiology Impressions: ITS Impressions Brain MRI 05/01/21 17:39 IMPRESSION: 1. There is a 3.4 cm relatively well marginated T2 hyperintense lesion centered in the deep white matter of the left frontal lobe. No associated enhancement. The etiology of this lesion remains somewhat nonspecific. An underlying low-grade glioma is a distinct consideration. However, an atypical appearance of nonspecific white matter insult could also be considered. A giant tumefactive perivascular space is considered less likely given the lack of T2 FLAIR suppression. 2. No acute intracranial abnormalities. No abnormal intracranial enhancement. Few additional nonspecific scattered white matter changes. Medications Medications Current Medications Generic Name Dose Route Start Last Admin Trade Name Freq PRN Reason Stop Dose Admin Acetaminophen 650 mg 04/29/21 20:50 Acetaminophen 325 Mg Tablet PO Q6H PRN Headache/Pain Mild Scale (1-3) Al Hydroxide/Mg Hydroxide 30 ml 04/29/21 20:50 Magnesium Hydrox/Alum Hydrox 30 Ml Oral.Susp PO Q6H PRN Heartburn/Nausea Baclofen 5 mg 04/29/21 21:00 05/11/21 08:20 Baclofen 10 Mg Tablet PO 5 mg TID TERRI Administration Bisacodyl 10 mg 04/29/21 22:04 Bisacodyl 10 Mg Supp.Rect MD BID PRN Constipation Clonazepam 0.5 mg 05/08/21 21:00 05/11/21 08:20 Clonazepam 0.5 Mg Tablet PO 0.5 mg BID TERRI Administration Docusate Sodium 100 mg 04/29/21 22:05 Docusate Sodium 100 Mg/10 Ml Liquid PO BID PRN Constipation Gabapentin 400 mg 04/30/21 09:00 05/11/21 08:20 Gabapentin 400 Mg Capsule PO 400 mg TID TERRI Administration Hydroxyzine HCl 25 mg 04/29/21 20:50 Hydroxyzine Hcl 25 Mg Tablet PO BEDTIME PRN Anxiety Magnesium Hydroxide 30 ml 04/29/21 20:50 Milk Of Magnesia 30 Ml Oral.Susp PO DAILY PRN Constipation Melatonin 3 mg 05/10/21 21:00 05/10/21 21:26 Melatonin 3 Mg Tablet PO 3 mg BEDTIME TERRI Administration Melatonin 3 mg 05/10/21 11:50 Melatonin 3 Mg Tablet PO BEDTIME PRN insomnia Nicotine Polacrilex 2 mg 04/29/21 20:50 Nicotine Polacrilex 2 Mg Gum BUCCAL Q2H PRN Nicotine Cravings Patient Own 1 each 04/30/21 21:00 05/11/21 08:22 Medication (Retaine EYE-BOTH 1 each Eye Drops) TID TERRI Administration Patient Own 1 each 05/10/21 09:00 05/11/21 08:22 Medication (Oculosin EYE-BOTH 1 each 1 Drop) 0900,1700 TERRI Administration Patient Own 1 each 05/10/21 09:00 05/11/21 08:21 Medication ( PO 1 each Hydroeyes 2 Caps) 0900,1700 TERRI Administration Paliperidone 3 mg 05/08/21 21:00 05/10/21 21:27 Paliperidone Er 3 Mg Tab.Er.24 PO 3 mg BEDTIME TERRI Administration Trazodone HCl 50 mg 04/29/21 20:50 05/05/21 02:00 Trazodone Hcl 50 Mg Tablet PO 50 mg BEDTIME PRN Administration Insomnia Allergies Allergies Allergy/AdvReac Type Severity Reaction Status Date / Time Unable to Assess Allergy Verified 04/29/21 20:49 Assessment & Plan Assessment & Plan (1) Brain lesion: Status: Acute Code(s): G93.9 - Disorder of brain, unspecified Assessment and Plan: 55 years old woman with incidental finding of a left hemispheric brain lesion. As outlined in Radiology report, it was nonspecific in nature with multiple possibilities. At the same time it was relatively clear that this was a chronic lesion. A chronic ischemic infarction was also a possibility. In any case this lesion was not symptomatic and not the cause of her problems. Otherwise there was no significant finding on brain imaging. Typical recommendation for this type of lesion is to repeat brain scan in a year time, at least couple of times. After that, if lesion does not change, imaging can be done less frequently. No immediate action is needed on this finding at this time. (2) Delusional disorder, somatic type, first episode, currently in acute episode: Status: Acute Code(s): F22 - Delusional disorders Assessment and Plan: Switch haldol to paliperidone as haldol appeared to cause dystonia. (3) Blepharitis: Status: Acute Code(s): H01.009 - Unspecified blepharitis unspecified eye, unspecified eyelid Greater than 50% of the session was spent on counseling and/or coordination of care Reason for contiued inpatient stay Substantial Risk for: harm to self and inability to function
[2021-05-07 14:48] LABS: Erythrocyte Sedimentation Rate 11 MM/HR (0-20)
[2021-05-07 20:45] VITALS: BP 113/55; PULSE 80; RESP 16; TEMP 36.8; O2SAT 97
[2021-05-07] MEDS: Melatonin 3 MG TABLET 6 MG PO (21:35)
[2021-05-08 06:00] VITALS: BP 110/53; PULSE 82; RESP 16; O2SAT 97
[2021-05-08] MEDS: HaloperidoL 1 MG TABLET 2 MG PO (09:49)
[2021-05-08] MEDS: Baclofen 10 MG TABLET 5 MG PO ×3 (09:49→21:56)
[2021-05-08] MEDS: Gabapentin 400 MG CAPSULE PO ×3 (09:49→21:56)
[2021-05-08] MEDS: Cyproheptadine HCl 4 MG TABLET PO (10:43)
[2021-05-08] MEDS: clonazePAM 1 MG TABLET PO (10:43)
--- NOTE | 2021-05-08 11:36 | HO.PSYCHPN ---
Subjective Subjective Date of Service: 05/11/21 Reason For Visit: Uspecified Depressive Disorder Interim History: Pt presents as slightly calmer, continues to report electromagnetici sensitivity. She states she can't be around phones or electronics. She does report increase dryness of eyes with Olanzapine, which is less with haldol. She denies SI/HI. She has been mostly in her room, minimally interactive with peers. Review of Systems Review of Systems unremarkable Cardiovascular: Denies chest pain, Denies rapid heart rate, Denies irregular heart rhythm, Denies lightheadedness and Denies dyspnea Respiratory: Denies dyspnea Gastrointestinal: Denies constipation and Denies diarrhea Musculoskeletal: Reports numbness and Reports tingling Reports numbness, Reports Other visual disturbances (light sensitivity), Reports tingling and Reports paresthesias Mental Status Exam Mental Status Exam Narrative: Appearance: casually groomed, fair hygiene, in NAD Behavior: calm, cooperative, minimal eye contact due to light sensitivity Psychomotor: no agitation or retardation noted Speech: clear, normal rate/rhythm/volume, spontaneous TP: linear TC: somatic delusions of effects of electromagnetic field sensitivity Mood: anxious Affect:congruent SI:denies HI:denies AH/VH:denies Delusions:somatic delusions Insight/judgment:poor x 2. Memory/cog: alert, oriented x 3. impaired due to psychiatric symptoms. Diagnostics Vital Signs (24Hr): Vital Signs - 24 hr 05/10/21 20:26 Temperature 97.5 F Pulse Rate 98 Blood Pressure 111/57 L Pulse Oximetry 99 Body Mass Index 21.4 Labs Results: 04/30/21 07:03 04/30/21 07:03 Labs: Laboratory Results - last 48 hr 05/07/21 13:51 SS-A/Ro Antibody <1.0 NEG SS-B/La Antibody <1.0 NEG Imaging Radiology Impressions: ITS Impressions Brain MRI 05/01/21 17:39 IMPRESSION: 1. There is a 3.4 cm relatively well marginated T2 hyperintense lesion centered in the deep white matter of the left frontal lobe. No associated enhancement. The etiology of this lesion remains somewhat nonspecific. An underlying low-grade glioma is a distinct consideration. However, an atypical appearance of nonspecific white matter insult could also be considered. A giant tumefactive perivascular space is considered less likely given the lack of T2 FLAIR suppression. 2. No acute intracranial abnormalities. No abnormal intracranial enhancement. Few additional nonspecific scattered white matter changes. Medications Medications Current Medications Generic Name Dose Route Start Last Admin Trade Name Freq PRN Reason Stop Dose Admin Acetaminophen 650 mg 04/29/21 20:50 Acetaminophen 325 Mg Tablet PO Q6H PRN Headache/Pain Mild Scale (1-3) Al Hydroxide/Mg Hydroxide 30 ml 04/29/21 20:50 Magnesium Hydrox/Alum Hydrox 30 Ml Oral.Susp PO Q6H PRN Heartburn/Nausea Baclofen 5 mg 04/29/21 21:00 05/11/21 08:20 Baclofen 10 Mg Tablet PO 5 mg TID TERRI Administration Bisacodyl 10 mg 04/29/21 22:04 Bisacodyl 10 Mg Supp.Rect NM BID PRN Constipation Clonazepam 0.5 mg 05/08/21 21:00 05/11/21 08:20 Clonazepam 0.5 Mg Tablet PO 0.5 mg BID TERRI Administration Docusate Sodium 100 mg 04/29/21 22:05 Docusate Sodium 100 Mg/10 Ml Liquid PO BID PRN Constipation Gabapentin 400 mg 04/30/21 09:00 05/11/21 08:20 Gabapentin 400 Mg Capsule PO 400 mg TID TERRI Administration Hydroxyzine HCl 25 mg 04/29/21 20:50 Hydroxyzine Hcl 25 Mg Tablet PO BEDTIME PRN Anxiety Magnesium Hydroxide 30 ml 04/29/21 20:50 Milk Of Magnesia 30 Ml Oral.Susp PO DAILY PRN Constipation Melatonin 3 mg 05/10/21 21:00 05/10/21 21:26 Melatonin 3 Mg Tablet PO 3 mg BEDTIME TERRI Administration Melatonin 3 mg 05/10/21 11:50 Melatonin 3 Mg Tablet PO BEDTIME PRN insomnia Nicotine Polacrilex 2 mg 04/29/21 20:50 Nicotine Polacrilex 2 Mg Gum BUCCAL Q2H PRN Nicotine Cravings Patient Own 1 each 04/30/21 21:00 05/11/21 08:22 Medication (Retaine EYE-BOTH 1 each Eye Drops) TID TERRI Administration Patient Own 1 each 05/10/21 09:00 05/11/21 08:22 Medication (Oculosin EYE-BOTH 1 each 1 Drop) 0900,1700 TERRI Administration Patient Own 1 each 05/10/21 09:00 05/11/21 08:21 Medication ( PO 1 each Hydroeyes 2 Caps) 0900,1700 TERRI Administration Paliperidone 3 mg 05/08/21 21:00 05/10/21 21:27 Paliperidone Er 3 Mg Tab.Er.24 PO 3 mg BEDTIME TERRI Administration Trazodone HCl 50 mg 04/29/21 20:50 05/05/21 02:00 Trazodone Hcl 50 Mg Tablet PO 50 mg BEDTIME PRN Administration Insomnia Allergies Allergies Allergy/AdvReac Type Severity Reaction Status Date / Time Unable to Assess Allergy Verified 04/29/21 20:49 Assessment & Plan Assessment & Plan (1) Brain lesion: Status: Acute Code(s): G93.9 - Disorder of brain, unspecified Assessment and Plan: 55 years old woman with incidental finding of a left hemispheric brain lesion. As outlined in Radiology report, it was nonspecific in nature with multiple possibilities. At the same time it was relatively clear that this was a chronic lesion. A chronic ischemic infarction was also a possibility. In any case this lesion was not symptomatic and not the cause of her problems. Otherwise there was no significant finding on brain imaging. Typical recommendation for this type of lesion is to repeat brain scan in a year time, at least couple of times. After that, if lesion does not change, imaging can be done less frequently. No immediate action is needed on this finding at this time. (2) Delusional disorder, somatic type, first episode, currently in acute episode: Status: Acute Code(s): F22 - Delusional disorders Assessment and Plan: 05/10/2021: No changes as Invega just started 05/08 therefore continue with same (3) Blepharitis: Status: Acute Code(s): H01.009 - Unspecified blepharitis unspecified eye, unspecified eyelid Greater than 50% of the session was spent on counseling and/or coordination of care Reason for contiued inpatient stay Substantial Risk for: inability to function
[2021-05-08 18:00] VITALS: BP 90/51; PULSE 96; RESP 16; TEMP 36.6; O2SAT 98
[2021-05-08] MEDS: clonazePAM 0.5 MG TABLET PO (21:56)
[2021-05-08] MEDS: Paliperidone ER 3 MG TAB.ER.24 PO (21:56)
[2021-05-08] MEDS: Melatonin 3 MG TABLET 6 MG PO (21:56)
[2021-05-09 06:00] VITALS: BP 119/58; PULSE 110; RESP 20; TEMP 36.4; O2SAT 98
[2021-05-09] MEDS: Baclofen 10 MG TABLET 5 MG PO ×3 (09:22→21:26)
[2021-05-09] MEDS: Gabapentin 400 MG CAPSULE PO ×3 (09:23→21:26)
[2021-05-09] MEDS: clonazePAM 0.5 MG TABLET PO ×2 (09:23→21:26)
--- NOTE | 2021-05-09 13:35 | HO.PSYCHPN ---
Subjective Subjective Date of Service: 05/09/21 Reason For Visit: Uspecified Depressive Disorder Interim History: reports ongoing concerns around lights and electromagnetic sensitivity. Reports things have gotten worse here. Concern around medications but also open to continuing with Invega which was just started yesterday. Reports having tingling and numbing sensations in her head and upset and believes that people do not trust what she says. When outside of bedroom or other closed spaces, walks around with a pillow on her head chew to concerns around electromagnetic energy. Reports wanting to get improvement in mood and coping with medications and have outside therapist and prescriber and hopes to work with team around same Medication Compliance: Yes Review of Systems Review of Systems unremarkable Mental Status Exam Mental Status Exam Narrative: seen in sensory room. Pleasant. Casually dressed with poor self-care. Had a pillow over her head when walking from her bedroom to the sensory room. Does appear guarded. Endorses feeling depressed. No SI. No HI. Does appear to have sensory experiences and intense beliefs around electromagnetic concerns when combined likely delusional in nature. insight and judgment does appear limited Diagnostics Vital Signs (24Hr): Vital Signs - 24 hr 05/09/21 06:00 05/09/21 19:59 Temperature 97.6 F 98.2 F Pulse Rate 110 H 101 H Respiratory Rate 20 Blood Pressure 119/58 L 98/51 L Pulse Oximetry 98 98 Body Mass Index 21.4 Labs Results: 04/30/21 07:03 04/30/21 07:03 Labs: Laboratory Results - last 48 hr 05/07/21 13:51 SS-A/Ro Antibody <1.0 NEG SS-B/La Antibody <1.0 NEG Imaging Radiology Impressions: ITS Impressions Brain MRI 05/01/21 17:39 IMPRESSION: 1. There is a 3.4 cm relatively well marginated T2 hyperintense lesion centered in the deep white matter of the left frontal lobe. No associated enhancement. The etiology of this lesion remains somewhat nonspecific. An underlying low-grade glioma is a distinct consideration. However, an atypical appearance of nonspecific white matter insult could also be considered. A giant tumefactive perivascular space is considered less likely given the lack of T2 FLAIR suppression. 2. No acute intracranial abnormalities. No abnormal intracranial enhancement. Few additional nonspecific scattered white matter changes. Medications Medications Current Medications Generic Name Dose Route Start Last Admin Trade Name Freq PRN Reason Stop Dose Admin Acetaminophen 650 mg 04/29/21 20:50 Acetaminophen 325 Mg Tablet PO Q6H PRN Headache/Pain Mild Scale (1-3) Al Hydroxide/Mg Hydroxide 30 ml 04/29/21 20:50 Magnesium Hydrox/Alum Hydrox 30 Ml Oral.Susp PO Q6H PRN Heartburn/Nausea Baclofen 5 mg 04/29/21 21:00 05/09/21 21:26 Baclofen 10 Mg Tablet PO 5 mg TID [facility] Administration Bisacodyl 10 mg 04/29/21 22:04 Bisacodyl 10 Mg Supp.Rect VT BID PRN Constipation Clonazepam 0.5 mg 05/08/21 21:00 05/09/21 21:26 Clonazepam 0.5 Mg Tablet PO 0.5 mg BID [facility] Administration Docusate Sodium 100 mg 04/29/21 22:05 Docusate Sodium 100 Mg/10 Ml Liquid PO BID PRN Constipation Gabapentin 400 mg 04/30/21 09:00 05/09/21 21:26 Gabapentin 400 Mg Capsule PO 400 mg TID [facility] Administration Hydroxyzine HCl 25 mg 04/29/21 20:50 Hydroxyzine Hcl 25 Mg Tablet PO BEDTIME PRN Anxiety Magnesium Hydroxide 30 ml 04/29/21 20:50 Milk Of Magnesia 30 Ml Oral.Susp PO DAILY PRN Constipation Melatonin 6 mg 05/01/21 21:00 05/09/21 21:26 Melatonin 3 Mg Tablet PO 3 mg BEDTIME [facility] Administration Nicotine Polacrilex 2 mg 04/29/21 20:50 Nicotine Polacrilex 2 Mg Gum BUCCAL Q2H PRN Nicotine Cravings Patient Own 1 each 04/30/21 21:00 05/09/21 21:31 Medication (Retaine EYE-BOTH 1 each Eye Drops) TID [facility] Administration Patient Own 1 each 05/10/21 09:00 Medication (Oculosin EYE-BOTH 1 Drop) 0900,1700 [facility] Patient Own 1 each 05/10/21 09:00 Medication ( PO Hydroeyes 2 Caps) 0900,1700 [facility] Paliperidone 3 mg 05/08/21 21:00 05/09/21 21:26 Paliperidone Er 3 Mg Tab.Er.24 PO 3 mg BEDTIME [facility] Administration Trazodone HCl 50 mg 04/29/21 20:50 05/05/21 02:00 Trazodone Hcl 50 Mg Tablet PO 50 mg BEDTIME PRN Administration Insomnia Allergies Allergies Allergy/AdvReac Type Severity Reaction Status Date / Time Unable to Assess Allergy Verified 04/29/21 20:49 Assessment & Plan Assessment & Plan (1) Brain lesion: Status: Acute Code(s): G93.9 - Disorder of brain, unspecified Assessment and Plan: 55 years old woman with incidental finding of a left hemispheric brain lesion. As outlined in Radiology report, it was nonspecific in nature with multiple possibilities. At the same time it was relatively clear that this was a chronic lesion. A chronic ischemic infarction was also a possibility. In any case this lesion was not symptomatic and not the cause of her problems. Otherwise there was no significant finding on brain imaging. Typical recommendation for this type of lesion is to repeat brain scan in a year time, at least couple of times. After that, if lesion does not change, imaging can be done less frequently. No immediate action is needed on this finding at this time. (2) Delusional disorder, somatic type, first episode, currently in acute episode: Status: Acute Code(s): F22 - Delusional disorders Assessment and Plan: 05/09/2021: No changes as Invega just started yesterday therefore continue with same (3) Blepharitis: Status: Acute Code(s): H01.009 - Unspecified blepharitis unspecified eye, unspecified eyelid Greater than 50% of the session was spent on counseling and/or coordination of care Reason for contiued inpatient stay Substantial Risk for: inability to function
[2021-05-09 14:57] LABS: Antibody to SS-A Antigen <1.0 NEG AI (<1.0 NEG); Antibody to SS-B Antigen <1.0 NEG AI (<1.0 NEG)
--- NOTE | 2021-05-09 18:18 | PC.NURSE ---
Pt requested times be changed to 5pm on two of her eye meds, pharmacy changed admin times but t/w unable to document 5pm administrations.
[2021-05-09 19:59] VITALS: BP 98/51; PULSE 101; TEMP 36.8; O2SAT 98
[2021-05-09] MEDS: Melatonin 3 MG TABLET 6 MG PO (21:26)
[2021-05-09] MEDS: Paliperidone ER 3 MG TAB.ER.24 PO (21:26)
[2021-05-10 06:00] VITALS: BP 104/58; PULSE 86; RESP 18; TEMP 36.9; O2SAT 98
[2021-05-10] MEDS: clonazePAM 0.5 MG TABLET PO ×2 (09:13→21:26)
[2021-05-10] MEDS: Gabapentin 400 MG CAPSULE PO ×3 (09:13→21:26)
[2021-05-10] MEDS: Baclofen 10 MG TABLET 5 MG PO ×3 (09:15→21:26)
--- NOTE | 2021-05-10 15:18 | HO.PSYCHPN ---
Subjective Subjective Date of Service: 05/10/21 Reason For Visit: Uspecified Depressive Disorder Interim History: Still has ongoing concerns around lights and electromagnetic sensitivity and changed bed with her roommate yesterday, due to concerns around bathroom light shining on her. Reports that she also feels light from the hallway when the doors are closed shining on to her feet. Continues to walk around with a pillow on her head when outside of her room due to concerns around electromagnetic energy. Still reports wanting to get improvement in mood and coping with medications and have outside therapist and prescriber and hopes to work with team around same Review of Systems Review of Systems unremarkable Cardiovascular: Denies chest pain, Denies rapid heart rate, Denies irregular heart rhythm, Denies lightheadedness and Denies dyspnea Respiratory: Denies dyspnea Gastrointestinal: Denies constipation and Denies diarrhea Musculoskeletal: Reports numbness and Reports tingling Reports numbness, Reports Other visual disturbances (light sensitivity), Reports tingling and Reports paresthesias Mental Status Exam Mental Status Exam Narrative: seen in room. Pleasant. Casually dressed with poor self-care. Guarded. Endorses feeling depressed. No SI. No HI. Does appear to have sensory experiences and intense beliefs around electromagnetic concerns when combined likely delusional in nature. insight and judgment does appear limited Diagnostics Vital Signs (24Hr): Vital Signs - 24 hr 05/09/21 19:59 05/10/21 06:00 Temperature 98.2 F 98.5 F Pulse Rate 101 H 86 Respiratory Rate 18 Blood Pressure 98/51 L 104/58 L Pulse Oximetry 98 98 Body Mass Index 21.4 Labs Results: 04/30/21 07:03 04/30/21 07:03 Labs: Laboratory Results - last 48 hr 05/07/21 13:51 SS-A/Ro Antibody <1.0 NEG SS-B/La Antibody <1.0 NEG Imaging Radiology Impressions: ITS Impressions Brain MRI 05/01/21 17:39 IMPRESSION: 1. There is a 3.4 cm relatively well marginated T2 hyperintense lesion centered in the deep white matter of the left frontal lobe. No associated enhancement. The etiology of this lesion remains somewhat nonspecific. An underlying low-grade glioma is a distinct consideration. However, an atypical appearance of nonspecific white matter insult could also be considered. A giant tumefactive perivascular space is considered less likely given the lack of T2 FLAIR suppression. 2. No acute intracranial abnormalities. No abnormal intracranial enhancement. Few additional nonspecific scattered white matter changes. Medications Medications Current Medications Generic Name Dose Route Start Last Admin Trade Name Alma Rosa PRN Reason Stop Dose Admin Acetaminophen 650 mg 04/29/21 20:50 Acetaminophen 325 Mg Tablet PO Q6H PRN Headache/Pain Mild Scale (1-3) Al Hydroxide/Mg Hydroxide 30 ml 04/29/21 20:50 Magnesium Hydrox/Alum Hydrox 30 Ml Oral.Susp PO Q6H PRN Heartburn/Nausea Baclofen 5 mg 04/29/21 21:00 05/10/21 09:15 Baclofen 10 Mg Tablet PO 5 mg TID [facility] Administration Bisacodyl 10 mg 04/29/21 22:04 Bisacodyl 10 Mg Supp.Rect OR BID PRN Constipation Clonazepam 0.5 mg 05/08/21 21:00 05/10/21 09:13 Clonazepam 0.5 Mg Tablet PO 0.5 mg BID [facility] Administration Docusate Sodium 100 mg 04/29/21 22:05 Docusate Sodium 100 Mg/10 Ml Liquid PO BID PRN Constipation Gabapentin 400 mg 04/30/21 09:00 05/10/21 09:13 Gabapentin 400 Mg Capsule PO 400 mg TID [facility] Administration Hydroxyzine HCl 25 mg 04/29/21 20:50 Hydroxyzine Hcl 25 Mg Tablet PO BEDTIME PRN Anxiety Magnesium Hydroxide 30 ml 04/29/21 20:50 Milk Of Magnesia 30 Ml Oral.Susp PO DAILY PRN Constipation Melatonin 3 mg 05/10/21 21:00 Melatonin 3 Mg Tablet PO BEDTIME [facility] Melatonin 3 mg 05/10/21 11:50 Melatonin 3 Mg Tablet PO BEDTIME PRN insomnia Nicotine Polacrilex 2 mg 04/29/21 20:50 Nicotine Polacrilex 2 Mg Gum BUCCAL Q2H PRN Nicotine Cravings Patient Own 1 each 04/30/21 21:00 05/10/21 09:13 Medication (Retaine EYE-BOTH 1 each Eye Drops) TID [facility] Administration Patient Own 1 each 05/10/21 09:00 05/10/21 09:15 Medication (Oculosin EYE-BOTH 1 each 1 Drop) 0900,1700 [facility] Administration Patient Own 1 each 05/10/21 09:00 05/10/21 09:14 Medication ( PO 1 each Hydroeyes 2 Caps) 0900,1700 [facility] Administration Paliperidone 3 mg 05/08/21 21:00 05/09/21 21:26 Paliperidone Er 3 Mg Tab.Er.24 PO 3 mg BEDTIME [facility] Administration Trazodone HCl 50 mg 04/29/21 20:50 05/05/21 02:00 Trazodone Hcl 50 Mg Tablet PO 50 mg BEDTIME PRN Administration Insomnia Allergies Allergies Allergy/AdvReac Type Severity Reaction Status Date / Time Unable to Assess Allergy Verified 04/29/21 20:49 Assessment & Plan Assessment & Plan (1) Brain lesion: Status: Acute Code(s): G93.9 - Disorder of brain, unspecified Assessment and Plan: 55 years old woman with incidental finding of a left hemispheric brain lesion. As outlined in Radiology report, it was nonspecific in nature with multiple possibilities. At the same time it was relatively clear that this was a chronic lesion. A chronic ischemic infarction was also a possibility. In any case this lesion was not symptomatic and not the cause of her problems. Otherwise there was no significant finding on brain imaging. Typical recommendation for this type of lesion is to repeat brain scan in a year time, at least couple of times. After that, if lesion does not change, imaging can be done less frequently. No immediate action is needed on this finding at this time. (2) Delusional disorder, somatic type, first episode, currently in acute episode: Status: Acute Code(s): F22 - Delusional disorders Assessment and Plan: 05/10/2021: No changes as Invega just started 05/08 therefore continue with same (3) Blepharitis: Status: Acute Code(s): H01.009 - Unspecified blepharitis unspecified eye, unspecified eyelid Greater than 50% of the session was spent on counseling and/or coordination of care Reason for contiued inpatient stay Substantial Risk for: inability to function and rapid decompensation
[2021-05-10 20:26] VITALS: BP 111/57; PULSE 98; TEMP 36.4; O2SAT 99
[2021-05-10] MEDS: Melatonin 3 MG TABLET PO (21:26)
[2021-05-10] MEDS: Paliperidone ER 3 MG TAB.ER.24 PO (21:27)
[2021-05-11 06:00] VITALS: BP 118/69; PULSE 88; RESP 16; TEMP 36.6; O2SAT 99
[2021-05-11] MEDS: clonazePAM 0.5 MG TABLET PO ×2 (08:20→21:01)
[2021-05-11] MEDS: Gabapentin 400 MG CAPSULE PO ×3 (08:20→21:01)
[2021-05-11] MEDS: Baclofen 10 MG TABLET 5 MG PO ×3 (08:20→21:02)
--- NOTE | 2021-05-11 11:52 | HO.PSYCHPN ---
Subjective Subjective Date of Service: 05/11/21 Reason For Visit: Uspecified Depressive Disorder Interim History: Pt continues to report that she needs to be away from electrical waves including phones, technology, electricity. She reports dryness of eyes continues to be same, no worsening. She does have upcoming appointment with opthalmologist, Dr. Lucas. She reports she had lower dose of melatonin last night but did not sleep as well, wants higher dose from 3mg po qhs to 6 mg po qhs. She denies SI/HI. Affect is constricted, minimal interactions with peers. She states physical symptoms worse in hospital. Review of Systems Review of Systems unremarkable Cardiovascular: Denies chest pain, Denies rapid heart rate, Denies irregular heart rhythm, Denies lightheadedness and Denies dyspnea Respiratory: Denies dyspnea Gastrointestinal: Denies constipation and Denies diarrhea Musculoskeletal: Reports numbness and Reports tingling Reports numbness, Reports Other visual disturbances (light sensitivity), Reports tingling and Reports paresthesias Mental Status Exam Mental Status Exam Narrative: Appearance: casually groomed, fair hygiene, in NAD Behavior: calm, cooperative, minimal eye contact due to light sensitivity Psychomotor: no agitation or retardation noted Speech: clear, normal rate/rhythm/volume, spontaneous TP: linear TC: somatic delusions of effects of electromagnetic field sensitivity Mood: anxious Affect:congruent SI:denies HI:denies AH/VH:denies Delusions:somatic delusions Insight/judgment:poor x 2. Memory/cog: alert, oriented x 3. impaired due to psychiatric symptoms. Diagnostics Vital Signs (24Hr): Vital Signs - 24 hr 05/10/21 20:26 Temperature 97.5 F Pulse Rate 98 Blood Pressure 111/57 L Pulse Oximetry 99 Body Mass Index 21.4 Labs Results: 04/30/21 07:03 04/30/21 07:03 Labs: Laboratory Results - last 48 hr 05/07/21 13:51 SS-A/Ro Antibody <1.0 NEG SS-B/La Antibody <1.0 NEG Imaging Radiology Impressions: ITS Impressions Brain MRI 05/01/21 17:39 IMPRESSION: 1. There is a 3.4 cm relatively well marginated T2 hyperintense lesion centered in the deep white matter of the left frontal lobe. No associated enhancement. The etiology of this lesion remains somewhat nonspecific. An underlying low-grade glioma is a distinct consideration. However, an atypical appearance of nonspecific white matter insult could also be considered. A giant tumefactive perivascular space is considered less likely given the lack of T2 FLAIR suppression. 2. No acute intracranial abnormalities. No abnormal intracranial enhancement. Few additional nonspecific scattered white matter changes. Medications Medications Current Medications Generic Name Dose Route Start Last Admin Trade Name Freq PRN Reason Stop Dose Admin Acetaminophen 650 mg 04/29/21 20:50 Acetaminophen 325 Mg Tablet PO Q6H PRN Headache/Pain Mild Scale (1-3) Al Hydroxide/Mg Hydroxide 30 ml 04/29/21 20:50 Magnesium Hydrox/Alum Hydrox 30 Ml Oral.Susp PO Q6H PRN Heartburn/Nausea Baclofen 5 mg 04/29/21 21:00 05/11/21 08:20 Baclofen 10 Mg Tablet PO 5 mg TID [facility] Administration Bisacodyl 10 mg 04/29/21 22:04 Bisacodyl 10 Mg Supp.Rect VT BID PRN Constipation Clonazepam 0.5 mg 05/08/21 21:00 05/11/21 08:20 Clonazepam 0.5 Mg Tablet PO 0.5 mg BID [facility] Administration Docusate Sodium 100 mg 04/29/21 22:05 Docusate Sodium 100 Mg/10 Ml Liquid PO BID PRN Constipation Gabapentin 400 mg 04/30/21 09:00 05/11/21 08:20 Gabapentin 400 Mg Capsule PO 400 mg TID [facility] Administration Hydroxyzine HCl 25 mg 04/29/21 20:50 Hydroxyzine Hcl 25 Mg Tablet PO BEDTIME PRN Anxiety Magnesium Hydroxide 30 ml 04/29/21 20:50 Milk Of Magnesia 30 Ml Oral.Susp PO DAILY PRN Constipation Melatonin 3 mg 05/10/21 11:50 Melatonin 3 Mg Tablet PO BEDTIME PRN insomnia Melatonin 6 mg 05/11/21 21:00 Melatonin 3 Mg Tablet PO BEDTIME [facility] Nicotine Polacrilex 2 mg 04/29/21 20:50 Nicotine Polacrilex 2 Mg Gum BUCCAL Q2H PRN Nicotine Cravings Patient Own 1 each 04/30/21 21:00 05/11/21 08:22 Medication (Retaine EYE-BOTH 1 each Eye Drops) TID [facility] Administration Patient Own 1 each 05/10/21 09:00 05/11/21 08:22 Medication (Oculosin EYE-BOTH 1 each 1 Drop) 0900,1700 [facility] Administration Patient Own 1 each 05/10/21 09:00 05/11/21 08:21 Medication ( PO 1 each Hydroeyes 2 Caps) 0900,1700 [facility] Administration Trazodone HCl 50 mg 04/29/21 20:50 05/05/21 02:00 Trazodone Hcl 50 Mg Tablet PO 50 mg BEDTIME PRN Administration Insomnia Allergies Allergies Allergy/AdvReac Type Severity Reaction Status Date / Time Unable to Assess Allergy Verified 04/29/21 20:49 Assessment & Plan Assessment & Plan (1) Brain lesion: Status: Acute Code(s): G93.9 - Disorder of brain, unspecified Assessment and Plan: 55 years old woman with incidental finding of a left hemispheric brain lesion. As outlined in Radiology report, it was nonspecific in nature with multiple possibilities. At the same time it was relatively clear that this was a chronic lesion. A chronic ischemic infarction was also a possibility. In any case this lesion was not symptomatic and not the cause of her problems. Otherwise there was no significant finding on brain imaging. Typical recommendation for this type of lesion is to repeat brain scan in a year time, at least couple of times. After that, if lesion does not change, imaging can be done less frequently. No immediate action is needed on this finding at this time. (2) Delusional disorder, somatic type, first episode, currently in acute episode: Status: Acute Code(s): F22 - Delusional disorders Assessment and Plan: Switched haldol to paliperidone as haldol appeared to cause dystonia. (3) Blepharitis: Status: Acute Code(s): H01.009 - Unspecified blepharitis unspecified eye, unspecified eyelid Greater than 50% of the session was spent on counseling and/or coordination of care Reason for contiued inpatient stay Substantial Risk for: harm to self
[2021-05-11 15:07] LABS: Anti Nuclear Antibody Pattern Nuclear, Homogeneous; Anti Nuclear Antibody Screen POSITIVE (NEGATIVE); Anti Nuclear Antibody Titer 1:40 titer
[2021-05-11 18:00] VITALS: BP 116/62; PULSE 86; O2SAT 98
[2021-05-11] MEDS: Magnesium Oxide 400 MG TABLET 800 MG PO (20:59)
[2021-05-11] MEDS: Melatonin 3 MG TABLET 6 MG PO (20:59)
[2021-05-11] MEDS: Paliperidone ER 3 MG TAB.ER.24 6 MG PO (21:00)
[2021-05-12 06:00] VITALS: BP 112/59; PULSE 83; RESP 16; TEMP 37.2; O2SAT 98
--- NOTE | 2021-05-12 08:08 | HO.PSYCHPN ---
Subjective Subjective Date of Service: 05/14/21 Reason For Visit: Uspecified Depressive Disorder Interim History: Pt continues present as anxious, preoccupied with electromagnetic sensitivity, wanting to leave as she thinks being in hospital exposed to light, electricity and phones is worsening her symptoms. She belives she will be blind soon. She reports feeling anxious. She denies SI/HI. She reports she will only go where there is no electricity. She denies SI, but appears still very overwhelmed by somatic delusions. Review of Systems Review of Systems unremarkable Cardiovascular: Denies chest pain, Denies rapid heart rate, Denies irregular heart rhythm, Denies lightheadedness and Denies dyspnea Respiratory: Denies dyspnea Gastrointestinal: Denies constipation and Denies diarrhea Musculoskeletal: Reports numbness and Reports tingling Reports numbness, Reports Other visual disturbances (light sensitivity), Reports tingling and Reports paresthesias Mental Status Exam Mental Status Exam Narrative: Appearance: casually groomed, fair hygiene, in NAD Behavior: calm, cooperative, minimal eye contact due to light sensitivity Psychomotor: no agitation or retardation noted Speech: clear, normal rate/rhythm/volume, spontaneous TP: linear TC: somatic delusions of effects of electromagnetic field sensitivity Mood: anxious Affect:congruent SI:denies HI:denies AH/VH:denies Delusions:somatic delusions Insight/judgment:poor x 2. Memory/cog: alert, oriented x 3. impaired due to psychiatric symptoms. Diagnostics Vital Signs (24Hr): Vital Signs - 24 hr 05/13/21 19:59 Temperature 98.2 F Pulse Rate 104 H Blood Pressure 117/64 Pulse Oximetry 98 Body Mass Index 21.4 Labs Results: 04/30/21 07:03 04/30/21 07:03 Labs: Laboratory Results - last 48 hr 05/07/21 05/12/21 13:51 08:59 TSH 0.74 RORO Titer 2 TNP RORO Titer 3 TNP RORO Pattern 2 TNP RORO Pattern 3 TNP Imaging Radiology Impressions: ITS Impressions Brain MRI 05/01/21 17:39 IMPRESSION: 1. There is a 3.4 cm relatively well marginated T2 hyperintense lesion centered in the deep white matter of the left frontal lobe. No associated enhancement. The etiology of this lesion remains somewhat nonspecific. An underlying low-grade glioma is a distinct consideration. However, an atypical appearance of nonspecific white matter insult could also be considered. A giant tumefactive perivascular space is considered less likely given the lack of T2 FLAIR suppression. 2. No acute intracranial abnormalities. No abnormal intracranial enhancement. Few additional nonspecific scattered white matter changes. Medications Medications Current Medications Generic Name Dose Route Start Last Admin Trade Name Freq PRN Reason Stop Dose Admin Acetaminophen 650 mg 04/29/21 20:50 Acetaminophen 325 Mg Tablet PO Q6H PRN Headache/Pain Mild Scale (1-3) Al Hydroxide/Mg Hydroxide 30 ml 04/29/21 20:50 Magnesium Hydrox/Alum Hydrox 30 Ml Oral.Susp PO Q6H PRN Heartburn/Nausea Baclofen 5 mg 04/29/21 21:00 05/13/21 21:35 Baclofen 10 Mg Tablet PO 5 mg TID TERRI Administration Bisacodyl 10 mg 04/29/21 22:04 Bisacodyl 10 Mg Supp.Rect [place] BID PRN Constipation Clonazepam 0.5 mg 05/08/21 21:00 05/13/21 21:36 Clonazepam 0.5 Mg Tablet PO 0.5 mg BID TERRI Administration Docusate Sodium 100 mg 04/29/21 22:05 Docusate Sodium 100 Mg/10 Ml Liquid PO BID PRN Constipation Gabapentin 400 mg 04/30/21 09:00 05/13/21 21:35 Gabapentin 400 Mg Capsule PO 400 mg TID TERRI Administration Hydroxyzine HCl 25 mg 04/29/21 20:50 Hydroxyzine Hcl 25 Mg Tablet PO BEDTIME PRN Anxiety Magnesium Hydroxide 30 ml 04/29/21 20:50 Milk Of Magnesia 30 Ml Oral.Susp PO DAILY PRN Constipation Magnesium Oxide 800 mg 05/11/21 21:00 05/13/21 21:35 Magnesium Oxide 400 Mg Tablet PO 800 mg BEDTIME TERRI Administration Melatonin 3 mg 05/10/21 11:50 05/13/21 21:35 Melatonin 3 Mg Tablet PO 3 mg BEDTIME PRN Administration insomnia Melatonin 6 mg 05/11/21 21:00 05/13/21 21:35 Melatonin 3 Mg Tablet PO 6 mg BEDTIME TERRI Administration Multivitamins 1 tab 05/11/21 14:55 05/13/21 09:44 B-Complex With Vitamin C Tablet PO 1 tab DAILY TERRI Administration Nicotine Polacrilex 2 mg 04/29/21 20:50 Nicotine Polacrilex 2 Mg Gum BUCCAL Q2H PRN Nicotine Cravings Patient Own 1 each 04/30/21 21:00 05/13/21 21:38 Medication (Retaine EYE-BOTH 1 each Eye Drops) TID TERRI Administration Patient Own 1 each 05/10/21 09:00 05/13/21 17:13 Medication (Oculosin EYE-BOTH 1 each 1 Drop) 0900,1700 TERRI Administration Patient Own 1 each 05/10/21 09:00 05/13/21 17:13 Medication ( PO 1 each Hydroeyes 2 Caps) 0900,1700 TERRI Administration Paliperidone 6 mg 05/11/21 21:00 05/13/21 21:36 Paliperidone Er 3 Mg Tab.Er.24 PO 6 mg BEDTIME TERRI Administration Trazodone HCl 50 mg 04/29/21 20:50 05/05/21 02:00 Trazodone Hcl 50 Mg Tablet PO 50 mg BEDTIME PRN Administration Insomnia Vitamin D 10 mcg 05/12/21 09:00 05/13/21 09:44 Cholecalciferol (Vitamin D3) 10 Mcg Tablet PO 10 mcg DAILY TERRI Administration Allergies Allergies Allergy/AdvReac Type Severity Reaction Status Date / Time Unable to Assess Allergy Verified 04/29/21 20:49 Assessment & Plan Assessment & Plan (1) Brain lesion: Status: Acute Code(s): G93.9 - Disorder of brain, unspecified Assessment and Plan: 55 years old woman with incidental finding of a left hemispheric brain lesion. As outlined in Radiology report, it was nonspecific in nature with multiple possibilities. At the same time it was relatively clear that this was a chronic lesion. A chronic ischemic infarction was also a possibility. In any case this lesion was not symptomatic and not the cause of her problems. Otherwise there was no significant finding on brain imaging. Typical recommendation for this type of lesion is to repeat brain scan in a year time, at least couple of times. After that, if lesion does not change, imaging can be done less frequently. No immediate action is needed on this finding at this time. (2) Delusional disorder, somatic type, first episode, currently in acute episode: Status: Acute Code(s): F22 - Delusional disorders Assessment and Plan: Switched haldol to paliperidone as haldol appeared to cause dystonia. (3) Blepharitis: Status: Acute Code(s): H01.009 - Unspecified blepharitis unspecified eye, unspecified eyelid Greater than 50% of the session was spent on counseling and/or coordination of care Reason for contiued inpatient stay Substantial Risk for: harm to self
[2021-05-12] MEDS: clonazePAM 0.5 MG TABLET PO (09:35)
[2021-05-12] MEDS: Baclofen 10 MG TABLET 5 MG PO ×3 (09:35→21:46)
[2021-05-12] MEDS: Gabapentin 400 MG CAPSULE PO ×3 (09:35→21:46)
[2021-05-12] MEDS: Cholecalciferol (Vitamin D3) 10 MCG TABLET PO (09:35)
[2021-05-12 10:01] LABS: TSH reflex Free T4 0.74 uIU/mL (0.32-4.0)
[2021-05-12] MEDS: Melatonin 3 MG TABLET 6 MG PO (21:46)
[2021-05-12] MEDS: Melatonin 3 MG TABLET PO (21:46)
[2021-05-12] MEDS: Magnesium Oxide 400 MG TABLET 800 MG PO (21:47)
[2021-05-12] MEDS: Paliperidone ER 3 MG TAB.ER.24 6 MG PO (21:48)
[2021-05-12 22:42] VITALS: BP 106/60; PULSE 60; TEMP 37.1; O2SAT 98
[2021-05-13 06:00] VITALS: BP 123/60; PULSE 90; RESP 16; O2SAT 99
--- NOTE | 2021-05-13 08:10 | P.PNPSI_ITS ---
Subjective Subjective Date of Service: 05/14/21 Reason For Visit: Uspecified Depressive Disorder Interim History: Pt continues to present very anxious, asking for discharge as soon as possible as she believes electromagnetic sensitivity worsening in hospital. She reports feeling overwhelmed, does denied suicidal ideation. She reports fair sleep as unit was loud last night. She continues to present overly focused on somatic delusions. She has been in her room, minimally interactive with peers. worries about side effects of medications. Review of Systems Review of Systems unremarkable Cardiovascular: Denies chest pain, Denies rapid heart rate, Denies irregular heart rhythm, Denies lightheadedness and Denies dyspnea Respiratory: Denies dyspnea Gastrointestinal: Denies constipation and Denies diarrhea Musculoskeletal: Reports numbness and Reports tingling Reports numbness, Reports Other visual disturbances (light sensitivity), Reports tingling and Reports paresthesias Mental Status Exam Mental Status Exam Narrative: Appearance: casually groomed, fair hygiene, in NAD Behavior: calm, cooperative, minimal eye contact due to light sensitivity Psychomotor: no agitation or retardation noted Speech: clear, normal rate/rhythm/volume, spontaneous TP: linear TC: somatic delusions of effects of electromagnetic field sensitivity Mood: anxious Affect:congruent SI:denies HI:denies AH/VH:denies Delusions:somatic delusions Insight/judgment:poor x 2. Memory/cog: alert, oriented x 3. impaired due to psychiatric symptoms. Diagnostics Vital Signs (24Hr): Vital Signs - 24 hr 05/13/21 19:59 Temperature 98.2 F Pulse Rate 104 H Blood Pressure 117/64 Pulse Oximetry 98 Body Mass Index 21.4 Labs Results: 04/30/21 07:03 04/30/21 07:03 Labs: Laboratory Results - last 48 hr 05/07/21 05/12/21 13:51 08:59 TSH 0.74 RORO Titer 2 TNP RORO Titer 3 TNP RORO Pattern 2 TNP RORO Pattern 3 TNP Imaging Radiology Impressions: ITS Impressions Brain MRI 05/01/21 17:39 IMPRESSION: 1. There is a 3.4 cm relatively well marginated T2 hyperintense lesion centered in the deep white matter of the left frontal lobe. No associated enhancement. The etiology of this lesion remains somewhat nonspecific. An underlying low-grade glioma is a distinct consideration. However, an atypical appearance of nonspecific white matter insult could also be considered. A giant tumefactive perivascular space is considered less likely given the lack of T2 FLAIR suppression. 2. No acute intracranial abnormalities. No abnormal intracranial enhancement. Few additional nonspecific scattered white matter changes. Medications Medications Current Medications Generic Name Dose Route Start Last Admin Trade Name Freq PRN Reason Stop Dose Admin Acetaminophen 650 mg 04/29/21 20:50 Acetaminophen 325 Mg Tablet PO Q6H PRN Headache/Pain Mild Scale (1-3) Al Hydroxide/Mg Hydroxide 30 ml 04/29/21 20:50 Magnesium Hydrox/Alum Hydrox 30 Ml Oral.Susp PO Q6H PRN Heartburn/Nausea Baclofen 5 mg 04/29/21 21:00 05/13/21 21:35 Baclofen 10 Mg Tablet PO 5 mg TID TERRI Administration Bisacodyl 10 mg 04/29/21 22:04 Bisacodyl 10 Mg Supp.Rect ID BID PRN Constipation Clonazepam 0.5 mg 05/08/21 21:00 05/13/21 21:36 Clonazepam 0.5 Mg Tablet PO 0.5 mg BID TERRI Administration Docusate Sodium 100 mg 04/29/21 22:05 Docusate Sodium 100 Mg/10 Ml Liquid PO BID PRN Constipation Gabapentin 400 mg 04/30/21 09:00 05/13/21 21:35 Gabapentin 400 Mg Capsule PO 400 mg TID TERRI Administration Hydroxyzine HCl 25 mg 04/29/21 20:50 Hydroxyzine Hcl 25 Mg Tablet PO BEDTIME PRN Anxiety Magnesium Hydroxide 30 ml 04/29/21 20:50 Milk Of Magnesia 30 Ml Oral.Susp PO DAILY PRN Constipation Magnesium Oxide 800 mg 05/11/21 21:00 05/13/21 21:35 Magnesium Oxide 400 Mg Tablet PO 800 mg BEDTIME TERRI Administration Melatonin 3 mg 05/10/21 11:50 05/13/21 21:35 Melatonin 3 Mg Tablet PO 3 mg BEDTIME PRN Administration insomnia Melatonin 6 mg 05/11/21 21:00 05/13/21 21:35 Melatonin 3 Mg Tablet PO 6 mg BEDTIME TERRI Administration Multivitamins 1 tab 05/11/21 14:55 05/13/21 09:44 B-Complex With Vitamin C Tablet PO 1 tab DAILY TERRI Administration Nicotine Polacrilex 2 mg 04/29/21 20:50 Nicotine Polacrilex 2 Mg Gum BUCCAL Q2H PRN Nicotine Cravings Patient Own 1 each 04/30/21 21:00 05/13/21 21:38 Medication (Retaine EYE-BOTH 1 each Eye Drops) TID TERRI Administration Patient Own 1 each 05/10/21 09:00 05/13/21 17:13 Medication (Oculosin EYE-BOTH 1 each 1 Drop) 0900,1700 TERRI Administration Patient Own 1 each 05/10/21 09:00 05/13/21 17:13 Medication ( PO 1 each Hydroeyes 2 Caps) 0900,1700 TERRI Administration Paliperidone 6 mg 05/11/21 21:00 05/13/21 21:36 Paliperidone Er 3 Mg Tab.Er.24 PO 6 mg BEDTIME TERRI Administration Trazodone HCl 50 mg 04/29/21 20:50 05/05/21 02:00 Trazodone Hcl 50 Mg Tablet PO 50 mg BEDTIME PRN Administration Insomnia Vitamin D 10 mcg 05/12/21 09:00 05/13/21 09:44 Cholecalciferol (Vitamin D3) 10 Mcg Tablet PO 10 mcg DAILY TERRI Administration Allergies Allergies Allergy/AdvReac Type Severity Reaction Status Date / Time Unable to Assess Allergy Verified 04/29/21 20:49 Assessment & Plan Assessment & Plan (1) Brain lesion: Status: Acute Code(s): G93.9 - Disorder of brain, unspecified Assessment and Plan: 55 years old woman with incidental finding of a left hemispheric brain lesion. As outlined in Radiology report, it was nonspecific in nature with multiple possibilities. At the same time it was relatively clear that this was a chronic lesion. A chronic ischemic infarction was also a possibility. In any case this lesion was not symptomatic and not the cause of her problems. Otherwise there was no significant finding on brain imaging. Typical recommendation for this t ype of lesion is to repeat brain scan in a year time, at least couple of times. After that, if lesion does not change, imaging can be done less frequently. No immediate action is needed on this finding at this time. (2) Delusional disorder, somatic type, first episode, currently in acute episode: Status: Acute Code(s): F22 - Delusional disorders Assessment and Plan: Switched haldol to paliperidone as haldol appeared to cause dystonia. (3) Blepharitis: Status: Acute Code(s): H01.009 - Unspecified blepharitis unspecified eye, unspecified eyelid Greater than 50% of the session was spent on counseling and/or coordination of care Reason for contiued inpatient stay Substantial Risk for: harm to self and inability to function
[2021-05-13] MEDS: Cholecalciferol (Vitamin D3) 10 MCG TABLET PO (09:44)
[2021-05-13] MEDS: Baclofen 10 MG TABLET 5 MG PO ×3 (09:44→21:35)
[2021-05-13] MEDS: Gabapentin 400 MG CAPSULE PO ×3 (09:44→21:35)
[2021-05-13] MEDS: clonazePAM 0.5 MG TABLET PO ×3 (10:36→21:36)
[2021-05-13 19:59] VITALS: BP 117/64; PULSE 104; TEMP 36.8; O2SAT 98
[2021-05-13] MEDS: Melatonin 3 MG TABLET 6 MG PO (21:35)
[2021-05-13] MEDS: Melatonin 3 MG TABLET PO (21:35)
[2021-05-13] MEDS: Magnesium Oxide 400 MG TABLET 800 MG PO (21:35)
[2021-05-13] MEDS: Paliperidone ER 3 MG TAB.ER.24 6 MG PO (21:36)
[2021-05-14 08:16] VITALS: BP 112/55; PULSE 84; RESP 16; TEMP 36.6; O2SAT 98
[2021-05-14] MEDS: Baclofen 10 MG TABLET 5 MG PO ×3 (08:23→22:48)
[2021-05-14] MEDS: Cholecalciferol (Vitamin D3) 10 MCG TABLET PO (08:24)
[2021-05-14] MEDS: Gabapentin 400 MG CAPSULE PO ×3 (08:24→22:51)
[2021-05-14] MEDS: clonazePAM 0.5 MG TABLET PO ×2 (08:24→22:51)
--- NOTE | 2021-05-14 11:44 | HO.PSYCHPN ---
Subjective Subjective Date of Service: 05/18/21 Reason For Visit: Uspecified Depressive Disorder Interim History: Pt presents slightly calmer, more future oriented in that she states she is looking forward to return home with supports. She denies SI/HI. She continues to focused on somatic concerns about electromagnetic sensitivity but reports feeling less overwhelmed about it. Review of Systems Review of Systems unremarkable Cardiovascular: Denies chest pain, Denies rapid heart rate, Denies irregular heart rhythm, Denies lightheadedness and Denies dyspnea Respiratory: Denies dyspnea Gastrointestinal: Denies constipation and Denies diarrhea Musculoskeletal: Reports numbness and Reports tingling Reports numbness, Reports Other visual disturbances (light sensitivity), Reports tingling and Reports paresthesias Mental Status Exam Mental Status Exam Narrative: Appearance: casually groomed, fair hygiene, in NAD Behavior: calm, cooperative, minimal eye contact due to light sensitivity Psychomotor: no agitation or retardation noted Speech: clear, normal rate/rhythm/volume, spontaneous TP: linear TC: somatic delusions of effects of electromagnetic field sensitivity Mood: anxious Affect:congruent SI:denies HI:denies AH/VH:denies Delusions:somatic delusions Insight/judgment:poor x 2. Memory/cog: alert, oriented x 3. impaired due to psychiatric symptoms. Diagnostics Vital Signs (24Hr): Vital Signs - 24 hr 05/14/21 20:00 05/15/21 09:35 Temperature 97.8 F Pulse Rate 88 92 Respiratory Rate 16 Blood Pressure 100/52 L 104/57 L Pulse Oximetry 98 100 Body Mass Index 21.4 Labs Results: 04/30/21 07:03 04/30/21 07:03 Imaging Radiology Impressions: ITS Impressions Brain MRI 05/01/21 17:39 IMPRESSION: 1. There is a 3.4 cm relatively well marginated T2 hyperintense lesion centered in the deep white matter of the left frontal lobe. No associated enhancement. The etiology of this lesion remains somewhat nonspecific. An underlying low-grade glioma is a distinct consideration. However, an atypical appearance of nonspecific white matter insult could also be considered. A giant tumefactive perivascular space is considered less likely given the lack of T2 FLAIR suppression. 2. No acute intracranial abnormalities. No abnormal intracranial enhancement. Few additional nonspecific scattered white matter changes. Medications Medications Current Medications Generic Name Dose Route Start Last Admin Trade Name Freq PRN Reason Stop Dose Admin Acetaminophen 650 mg 04/29/21 20:50 Acetaminophen 325 Mg Tablet PO Q6H PRN Headache/Pain Mild Scale (1-3) Al Hydroxide/Mg Hydroxide 30 ml 04/29/21 20:50 Magnesium Hydrox/Alum Hydrox 30 Ml Oral.Susp PO Q6H PRN Heartburn/Nausea Baclofen 5 mg 04/29/21 21:00 05/15/21 08:23 Baclofen 10 Mg Tablet PO 5 mg TID TERRI Administration Bisacodyl 10 mg 04/29/21 22:04 Bisacodyl 10 Mg Supp.Rect [place] BID PRN Constipation Clonazepam 0.5 mg 05/08/21 21:00 05/15/21 08:24 Clonazepam 0.5 Mg Tablet PO 0.5 mg BID TERRI Administration Docusate Sodium 100 mg 04/29/21 22:05 Docusate Sodium 100 Mg/10 Ml Liquid PO BID PRN Constipation Gabapentin 400 mg 04/30/21 09:00 05/15/21 08:24 Gabapentin 400 Mg Capsule PO 400 mg TID TERRI Administration Hydroxyzine HCl 25 mg 04/29/21 20:50 Hydroxyzine Hcl 25 Mg Tablet PO BEDTIME PRN Anxiety Magnesium Hydroxide 30 ml 04/29/21 20:50 Milk Of Magnesia 30 Ml Oral.Susp PO DAILY PRN Constipation Magnesium Oxide 800 mg 05/11/21 21:00 05/14/21 22:52 Magnesium Oxide 400 Mg Tablet PO 800 mg BEDTIME TERRI Administration Melatonin 3 mg 05/10/21 11:50 05/13/21 21:35 Melatonin 3 Mg Tablet PO 3 mg BEDTIME PRN Administration insomnia Melatonin 6 mg 05/11/21 21:00 05/14/21 22:49 Melatonin 3 Mg Tablet PO 6 mg BEDTIME TERRI Administration Multivitamins 1 tab 05/11/21 14:55 05/15/21 08:24 B-Complex With Vitamin C Tablet PO 1 tab DAILY TERRI Administration Nicotine Polacrilex 2 mg 04/29/21 20:50 Nicotine Polacrilex 2 Mg Gum BUCCAL Q2H PRN Nicotine Cravings Patient Own 1 each 04/30/21 21:00 05/15/21 08:27 Medication (Retaine EYE-BOTH 1 each Eye Drops) TID TERRI Administration Patient Own 1 each 05/10/21 09:00 05/15/21 08:27 Medication (Oculosin EYE-BOTH 1 each 1 Drop) 0900,1700 TERRI Administration Patient Own 1 each 05/10/21 09:00 05/15/21 08:25 Medication ( PO 1 each Hydroeyes 2 Caps) 0900,1700 TERRI Administration Pat Own Med ( 1 each 05/15/21 09:00 05/15/21 08:27 Selenium 200 Mcg) PO 1 each DAILY TERRI Administration Pat Own Med ( 1 each 05/15/21 09:00 05/15/21 08:26 Cholecalciferol ( PO 1 each Vitamin D3) 25 Mcg DAILY TERRI Administration Tablet) Pat Own Med (Zinc 1 each 05/15/21 09:00 05/15/21 08:28 Picolinate 25 Mg) PO 1 each DAILY TERRI Administration Pat Own Med ([place] 3 2 each 05/14/21 17:00 05/15/21 08:28 690 Mg) PO 2 each BIDWM TERRI Administration Patient Own Med ( 1 each 05/14/21 21:00 05/15/21 08:26 Hyaluronic Acid 100 PO 1 each Mg) BID TERRI Administration Paliperidone 6 mg 05/11/21 21:00 05/14/21 22:50 Paliperidone Er 3 Mg Tab.Er.24 PO 6 mg BEDTIME ETRRI Administration Trazodone HCl 50 mg 04/29/21 20:50 05/05/21 02:00 Trazodone Hcl 50 Mg Tablet PO 50 mg BEDTIME PRN Administration Insomnia Allergies Allergies Allergy/AdvReac Type Severity Reaction Status Date / Time Unable to Assess Allergy Verified 04/29/21 20:49 Assessment & Plan Assessment & Plan (1) Brain lesion: Status: Acute Code(s): G93.9 - Disorder of brain, unspecified Assessment and Plan: 55 years old woman with incidental finding of a left hemispheric brain lesion. As outlined in Radiology report, it was nonspecific in nature with multiple possibilities. At the same time it was relatively clear that this was a chronic lesion. A chronic ischemic infarction was also a possibility. In any case this lesion was not symptomatic and not the cause of her problems. Otherwise there was no significant finding on brain imaging. Typical recommendation for this type of lesion is to repeat brain scan in a year time, at least couple of times. After that, if lesion does not change, imaging can be done less frequently. No immediate action is needed on this finding at this time. (2) Delusional disorder, somatic type, first episode, currently in acute episode: Status: Acute Code(s): F22 - Delusional disorders Assessment and Plan: Switched haldol to paliperidone as haldol appeared to cause dystonia. (3) Blepharitis: Status: Acute Code(s): H01.009 - Unspecified blepharitis unspecified eye, unspecified eyelid Greater than 50% of the session was spent on counseling and/or coordination of care Reason for contiued inpatient stay Substantial Risk for: harm to self
[2021-05-14 20:00] VITALS: BP 100/52; PULSE 88; TEMP 36.6; O2SAT 98
[2021-05-14] MEDS: Melatonin 3 MG TABLET 6 MG PO (22:49)
[2021-05-14] MEDS: Paliperidone ER 3 MG TAB.ER.24 6 MG PO (22:50)
[2021-05-14] MEDS: Magnesium Oxide 400 MG TABLET 800 MG PO (22:52)
[2021-05-15] MEDS: Baclofen 10 MG TABLET 5 MG PO ×3 (08:23→21:30)
[2021-05-15] MEDS: Gabapentin 400 MG CAPSULE PO ×3 (08:24→21:31)
[2021-05-15] MEDS: clonazePAM 0.5 MG TABLET PO ×2 (08:24→21:31)
[2021-05-15 09:35] VITALS: BP 104/57; PULSE 92; RESP 16; O2SAT 100
--- NOTE | 2021-05-15 11:41 | HO.PSYCHPN ---
Subjective Subjective Date of Service: 05/18/21 Reason For Visit: Uspecified Depressive Disorder Interim History: Pt reports less anxious but preoccupied with worsening eye dryness and light sensitivity. She denies SI/HI. She reports sleeping and eating well. She has been mostly in her room but agrees to go to break outside. She reports sun does not bother her eyes. Review of Systems Review of Systems unremarkable Cardiovascular: Denies chest pain, Denies rapid heart rate, Denies irregular heart rhythm, Denies lightheadedness and Denies dyspnea Respiratory: Denies dyspnea Gastrointestinal: Denies constipation and Denies diarrhea Musculoskeletal: Reports numbness and Reports tingling Reports numbness, Reports Other visual disturbances (light sensitivity), Reports tingling and Reports paresthesias Mental Status Exam Mental Status Exam Narrative: Appearance: casually groomed, fair hygiene, in NAD Behavior: calm, cooperative, minimal eye contact due to light sensitivity Psychomotor: no agitation or retardation noted Speech: clear, normal rate/rhythm/volume, spontaneous TP: linear TC: somatic delusions of effects of electromagnetic field sensitivity Mood: anxious Affect:congruent SI:denies HI:denies AH/VH:denies Delusions:somatic delusions Insight/judgment:poor x 2. Memory/cog: alert, oriented x 3. impaired due to psychiatric symptoms. Patient was more cooperative who was interested in having a dialogue and medical opinion Her thoughts about emfv remain fixed Denies self-harming thoughts Diagnostics Vital Signs (24Hr): Vital Signs - 24 hr 05/17/21 18:00 05/18/21 08:35 Temperature 97.8 F 97.4 F Pulse Rate 90 82 Respiratory Rate 18 17 Blood Pressure 130/60 98/51 L Pulse Oximetry 100 100 Body Mass Index 21.4 Labs Results: 04/30/21 07:03 04/30/21 07:03 Labs: Laboratory Results - last 48 hr 05/12/21 08:59 25-OH Vitamin D Total 32 25-Hydroxy Vitamin D2 <4 25-Hydroxy Vitamin D3 32 Imaging Radiology Impressions: ITS Impressions Brain MRI 05/01/21 17:39 IMPRESSION: 1. There is a 3.4 cm relatively well marginated T2 hyperintense lesion centered in the deep white matter of the left frontal lobe. No associated enhancement. The etiology of this lesion remains somewhat nonspecific. An underlying low-grade glioma is a distinct consideration. However, an atypical appearance of nonspecific white matter insult could also be considered. A giant tumefactive perivascular space is considered less likely given the lack of T2 FLAIR suppression. 2. No acute intracranial abnormalities. No abnormal intracranial enhancement. Few additional nonspecific scattered white matter changes. Medications Medications Current Medications Generic Name Dose Route Start Last Admin Trade Name Freq PRN Reason Stop Dose Admin Acetaminophen 650 mg 04/29/21 20:50 Acetaminophen 325 Mg Tablet PO Q6H PRN Headache/Pain Mild Scale (1-3) Al Hydroxide/Mg Hydroxide 30 ml 04/29/21 20:50 Magnesium Hydrox/Alum Hydrox 30 Ml Oral.Susp PO Q6H PRN Heartburn/Nausea Baclofen 5 mg 04/29/21 21:00 05/18/21 08:47 Baclofen 10 Mg Tablet PO 5 mg TID TERRI Administration Bisacodyl 10 mg 04/29/21 22:04 Bisacodyl 10 Mg Supp.Rect ND BID PRN Constipation Clonazepam 0.5 mg 05/17/21 12:46 05/17/21 16:19 Clonazepam 0.5 Mg Tablet PO 0.5 mg BID PRN Administration anxiety/restlessness Docusate Sodium 100 mg 04/29/21 22:05 Docusate Sodium 100 Mg/10 Ml Liquid PO BID PRN Constipation Gabapentin 400 mg 04/30/21 09:00 05/18/21 08:48 Gabapentin 400 Mg Capsule PO 400 mg TID TERRI Administration Hydroxyzine HCl 25 mg 04/29/21 20:50 Hydroxyzine Hcl 25 Mg Tablet PO BEDTIME PRN Anxiety Magnesium Hydroxide 30 ml 04/29/21 20:50 Milk Of Magnesia 30 Ml Oral.Susp PO DAILY PRN Constipation Magnesium Oxide 800 mg 05/11/21 21:00 05/17/21 20:51 Magnesium Oxide 400 Mg Tablet PO 800 mg BEDTIME TERRI Administration Melatonin 3 mg 05/10/21 11:50 05/13/21 21:35 Melatonin 3 Mg Tablet PO 3 mg BEDTIME PRN Administration insomnia Melatonin 6 mg 05/11/21 21:00 05/17/21 20:52 Melatonin 3 Mg Tablet PO 6 mg BEDTIME TERRI Administration Multivitamins 1 tab 05/11/21 14:55 05/18/21 08:48 B-Complex With Vitamin C Tablet PO 1 tab DAILY TERRI Administration Nicotine Polacrilex 2 mg 04/29/21 20:50 Nicotine Polacrilex 2 Mg Gum BUCCAL Q2H PRN Nicotine Cravings Patient Own 1 each 04/30/21 21:00 05/18/21 08:53 Medication (Retaine EYE-BOTH 1 each Eye Drops) TID TERRI Administration Patient Own 1 each 05/10/21 09:00 05/18/21 08:53 Medication (Oculosin EYE-BOTH 1 each 1 Drop) 0900,1700 TERRI Administration Patient Own 1 each 05/10/21 09:00 05/18/21 08:52 Medication ( PO 1 each Hydroeyes 2 Caps) 0900,1700 TERRI Administration Pat Own Med ( 1 each 05/15/21 09:00 05/18/21 08:51 Selenium 200 Mcg) PO 1 each DAILY TERRI Administration Pat Own Med ( 1 each 05/15/21 09:00 05/18/21 08:50 Cholecalciferol ( PO 1 each Vitamin D3) 25 Mcg DAILY TERRI Administration Tablet) Pat Own Med (Zinc 1 each 05/15/21 09:00 05/18/21 08:51 Picolinate 25 Mg) PO 1 each DAILY TERRI Administration Pat Own Med ([place] 3 2 each 05/14/21 17:00 05/18/21 08:49 690 Mg) PO 2 each BIDWM TERRI Administration Patient Own Med ( 1 each 05/14/21 21:00 05/18/21 08:52 Hyaluronic Acid 100 PO 1 each Mg) BID TERRI Administration Paliperidone 6 mg 05/11/21 21:00 05/17/21 20:49 Paliperidone Er 3 Mg Tab.Er.24 PO 6 mg BEDTIME TERRI Administration Prazosin HCl 1 mg 05/17/21 12:44 Prazosin Hcl 1 Mg Capsule PO BEDTIME PRN Insomnia Protocol Trazodone HCl 50 mg 04/29/21 20:50 05/05/21 02:00 Trazodone Hcl 50 Mg Tablet PO 50 mg BEDTIME PRN Administration Insomnia Allergies Allergies Allergy/AdvReac Type Severity Reaction Status Date / Time Unable to Assess Allergy Verified 04/29/21 20:49 Assessment & Plan Assessment & Plan (1) Brain lesion: Status: Acute Code(s): G93.9 - Disorder of brain, unspecified Assessment and Plan: 55 years old woman with incidental finding of a left hemispheric brain lesion. As outlined in Radiology report, it was nonspecific in nature with multiple possibilities. At the same time it was relatively clear that this was a chronic lesion. A chronic ischemic infarction was also a possibility. In any case this lesion was not symptomatic and not the cause of her problems. Otherwise there was no significant finding on brain imaging. Typical recommendation for this type of lesion is to repeat brain scan in a year time, at least couple of times. After that, if lesion does not change, imaging can be done less frequently. No immediate action is needed on this finding at this time. (2) Delusional disorder, somatic type, first episode, currently in acute episode: Status: Acute Code(s): F22 - Delusional disorders Assessment and Plan: Switched haldol to paliperidone as haldol appeared to cause dystonia. (3) Blepharitis: Status: Acute Code(s): H01.009 - Unspecified blepharitis unspecified eye, unspecified eyelid Greater than 50% of the session was spent on counseling and/or coordination of care Reason for contiued inpatient stay Substantial Risk for: inability to function
[2021-05-15 21:00] VITALS: BP 122/68; PULSE 99; RESP 16; TEMP 36.7; O2SAT 97
[2021-05-15] MEDS: Magnesium Oxide 400 MG TABLET 800 MG PO (21:31)
[2021-05-15] MEDS: Paliperidone ER 3 MG TAB.ER.24 6 MG PO (21:32)
[2021-05-15] MEDS: Melatonin 3 MG TABLET 6 MG PO (21:32)
[2021-05-16 06:00] VITALS: BP 146/61; PULSE 102; RESP 16; TEMP 36.7; O2SAT 99
[2021-05-16] MEDS: Baclofen 10 MG TABLET 5 MG PO ×3 (09:22→21:37)
[2021-05-16] MEDS: clonazePAM 0.5 MG TABLET PO ×2 (09:22→21:37)
[2021-05-16] MEDS: Gabapentin 400 MG CAPSULE PO ×3 (09:23→21:37)
--- NOTE | 2021-05-16 11:35 | HO.PSYCHPN ---
Subjective Subjective Date of Service: 05/16/21 Reason For Visit: Uspecified Depressive Disorder Guardianship: No Medical Problems Affecting Mental Status: Yes Interim History: Patient preoccupied with the fact that she is sensitive to electromagneti c frequencies remains in her room avoiding contact with artificial light. She is taking gabapentin [place]vega The patient was agreeable to getting an EEG to see if brain lesion noted on MRI may related at all to any of her symptoms denies self-harming thoughts Mental Status Exam Mental Status Exam Narrative: Appearance: casually groomed, fair hygiene, in NAD Behavior: calm, cooperative, minimal eye contact due to light sensitivity Psychomotor: no agitation or retardation noted Speech: clear, normal rate/rhythm/volume, spontaneous TP: linear TC: somatic delusions of effects of electromagnetic field sensitivity Mood: anxious Affect:congruent SI:denies HI:denies AH/VH:denies Delusions:somatic delusions Insight/judgment:poor x 2. Memory/cog: alert, oriented x 3. impaired due to psychiatric symptoms. Patient was more cooperative who was interested in having a dialogue and medical opinion Her thoughts about emfv remain fixed Denies self-harming thoughts Diagnostics Vital Signs (24Hr): Vital Signs - 24 hr 05/15/21 21:00 05/16/21 06:00 Temperature 98.1 F 98.1 F Pulse Rate 99 102 H Respiratory Rate 16 16 Blood Pressure 122/68 146/61 H Pulse Oximetry 97 99 Body Mass Index 21.4 Labs Results: 04/30/21 07:03 04/30/21 07:03 Imaging Radiology Impressions: ITS Impressions Brain MRI 05/01/21 17:39 IMPRESSION: 1. There is a 3.4 cm relatively well marginated T2 hyperintense lesion centered in the deep white matter of the left frontal lobe. No associated enhancement. The etiology of this lesion remains somewhat nonspecific. An underlying low-grade glioma is a distinct consideration. However, an atypical appearance of nonspecific white matter insult could also be considered. A giant tumefactive perivascular space is considered less likely given the lack of T2 FLAIR suppression. 2. No acute intracranial abnormalities. No abnormal intracranial enhancement. Few additional nonspecific scattered white matter changes. Medications Medications Current Medications Generic Name Dose Route Start Last Admin Trade Name Freq PRN Reason Stop Dose Admin Acetaminophen 650 mg 04/29/21 20:50 Acetaminophen 325 Mg Tablet PO Q6H PRN Headache/Pain Mild Scale (1-3) Al Hydroxide/Mg Hydroxide 30 ml 04/29/21 20:50 Magnesium Hydrox/Alum Hydrox 30 Ml Oral.Susp PO Q6H PRN Heartburn/Nausea Baclofen 5 mg 04/29/21 21:00 05/16/21 09:22 Baclofen 10 Mg Tablet PO 5 mg TID TERIR Administration Bisacodyl 10 mg 04/29/21 22:04 Bisacodyl 10 Mg Supp.Rect DE BID PRN Constipation Clonazepam 0.5 mg 05/08/21 21:00 05/16/21 09:22 Clonazepam 0.5 Mg Tablet PO 0.5 mg BID TERRI Administration Docusate Sodium 100 mg 04/29/21 22:05 Docusate Sodium 100 Mg/10 Ml Liquid PO BID PRN Constipation Gabapentin 400 mg 04/30/21 09:00 05/16/21 09:23 Gabapentin 400 Mg Capsule PO 400 mg TID TERRI Administration Hydroxyzine HCl 25 mg 04/29/21 20:50 Hydroxyzine Hcl 25 Mg Tablet PO BEDTIME PRN Anxiety Magnesium Hydroxide 30 ml 04/29/21 20:50 Milk Of Magnesia 30 Ml Oral.Susp PO DAILY PRN Constipation Magnesium Oxide 800 mg 05/11/21 21:00 05/15/21 21:31 Magnesium Oxide 400 Mg Tablet PO 800 mg BEDTIME TERRI Administration Melatonin 3 mg 05/10/21 11:50 05/13/21 21:35 Melatonin 3 Mg Tablet PO 3 mg BEDTIME PRN Administration insomnia Melatonin 6 mg 05/11/21 21:00 05/15/21 21:32 Melatonin 3 Mg Tablet PO 6 mg BEDTIME TERRI Administration Multivitamins 1 tab 05/11/21 14:55 05/16/21 09:23 B-Complex With Vitamin C Tablet PO 1 tab DAILY TERRI Administration Nicotine Polacrilex 2 mg 04/29/21 20:50 Nicotine Polacrilex 2 Mg Gum BUCCAL Q2H PRN Nicotine Cravings Patient Own 1 each 04/30/21 21:00 05/16/21 09:25 Medication (Retaine EYE-BOTH 1 each Eye Drops) TID TERRI Administration Patient Own 1 each 05/10/21 09:00 05/16/21 09:25 Medication (Oculosin EYE-BOTH 1 each 1 Drop) 0900,1700 TERRI Administration Patient Own 1 each 05/10/21 09:00 05/16/21 09:24 Medication ( PO 1 each Hydroeyes 2 Caps) 0900,1700 TERRI Administration Pat Own Med ( 1 each 05/15/21 09:00 05/16/21 09:23 Selenium 200 Mcg) PO 1 each DAILY TERRI Administration Pat Own Med ( 1 each 05/15/21 09:00 05/16/21 09:26 Cholecalciferol ( PO 1 each Vitamin D3) 25 Mcg DAILY TERRI Administration Tablet) Pat Own Med (Zinc 1 each 05/15/21 09:00 05/16/21 09:24 Picolinate 25 Mg) PO 1 each DAILY TERRI Administration Pat Own Med ([place] 3 2 each 05/14/21 17:00 05/16/21 09:22 690 Mg) PO 2 each BIDWM TERRI Administration Patient Own Med ( 1 each 05/14/21 21:00 05/16/21 09:24 Hyaluronic Acid 100 PO 1 each Mg) BID TERRI Administration Paliperidone 6 mg 05/11/21 21:00 05/15/21 21:32 Paliperidone Er 3 Mg Tab.Er.24 PO 6 mg BEDTIME TERRI Administration Trazodone HCl 50 mg 04/29/21 20:50 05/05/21 02:00 Trazodone Hcl 50 Mg Tablet PO 50 mg BEDTIME PRN Administration Insomnia Allergies Allergies Allergy/AdvReac Type Severity Reaction Status Date / Time Unable to Assess Allergy Verified 04/29/21 20:49 Assessment & Plan Assessment & Plan (1) Brain lesion: Status: Acute Code(s): G93.9 - Disorder of brain, unspecified Assessment and Plan: 55 years old woman with incidental finding of a left hemispheric brain lesion. As outlined in Radiology report, it was nonspecific in nature with multiple possibilities. At the same time it was relatively clear that this was a chronic lesion. A chronic ischemic infarction was also a possibility. In any case this lesion was not symptomatic and not the cause of her problems. Otherwise there was no significant finding on brain imaging. Typical recommendation for this type of lesion is to repeat brain scan in a year time, at least couple of times. After that, if lesion does not change, imaging can be done less frequently. No immediate action is needed on this finding at this time. (2) Delusional disorder, somatic type, first episode, currently in acute episode: Status: Acute Code(s): F22 - Delusional disorders Assessment and Plan: Seemal changed to Invega appears to have fixed somatic delusion hopefully there is some level of abnormal brain activity that may be contributing. Patient willing to do EEG. Discussed ways to cope with current belief system (3) Blepharitis: Status: Acute Code(s): H01.009 - Unspecified blepharitis unspecified eye, unspecified eyelid Greater than 50% of the session was spent on counseling and/or coordination of care Reason for contiued inpatient stay Substantial Risk for: harm to self, inability to function and rapid decompensation
[2021-05-16 16:57] LABS: Vitamin D 25-OH, D2 <4 ng/mL; Vitamin D 25-OH, D3 32 ng/mL; Vitamin D 25-OH, Total 32 ng/mL (30-100)
[2021-05-16] MEDS: Paliperidone ER 3 MG TAB.ER.24 6 MG PO (21:35)
[2021-05-16] MEDS: Melatonin 3 MG TABLET 6 MG PO (21:36)
[2021-05-16] MEDS: Magnesium Oxide 400 MG TABLET 800 MG PO (21:36)
[2021-05-16 22:00] VITALS: BP 140/75; PULSE 97; TEMP 36.7; O2SAT 98
[2021-05-17 08:35] VITALS: BP 106/54; PULSE 87; RESP 16; TEMP 36.8; O2SAT 99
[2021-05-17] MEDS: Baclofen 10 MG TABLET 5 MG PO ×3 (08:41→20:52)
[2021-05-17] MEDS: clonazePAM 0.5 MG TABLET PO ×3 (08:42→20:50)
[2021-05-17] MEDS: Gabapentin 400 MG CAPSULE PO ×3 (08:42→20:51)
[2021-05-17 18:00] VITALS: BP 130/60; PULSE 90; RESP 18; TEMP 36.6; O2SAT 100
[2021-05-17] MEDS: Paliperidone ER 3 MG TAB.ER.24 6 MG PO (20:49)
[2021-05-17] MEDS: Magnesium Oxide 400 MG TABLET 800 MG PO (20:51)
[2021-05-17] MEDS: Melatonin 3 MG TABLET 6 MG PO (20:52)
--- NOTE | 2021-05-17 23:38 | P.PNPSI_ITS ---
Subjective Subjective Date of Service: 05/18/21 Reason For Visit: Uspecified Depressive Disorder Subjective Notes: Conditional Voluntary Guardianship: No Interim History: PATIENT CALM ISOLATED TO HER ROOM STILL REMAINS AGREEABLE TO EEG FEELS CLONAZEPAM HELPFUL Medication Compliance: Yes Mental Status Exam Mental Status Exam Narrative: Appearance: casually groomed, fair hygiene, in NAD Behavior: calm, cooperative, minimal eye contact due to light sensitivity Psychomotor: no agitation or retardation noted Speech: clear, normal rate/rhythm/volume, spontaneous TP: linear TC: somatic delusions of effects of electromagnetic field sensitivity Mood: anxious Affect:congruent SI:denies HI:denies AH/VH:denies Delusions:somatic delusions Insight/judgment:poor x 2. Memory/cog: alert, oriented x 3. impaired due to psychiatric symptoms. Patient was more cooperative who was interested in having a dialogue and medical opinion Her thoughts about emfv remain fixed Denies self-harming thoughts Diagnostics Vital Signs (24Hr): Vital Signs - 24 hr 05/17/21 08:35 05/17/21 18:00 Temperature 98.3 F 97.8 F Pulse Rate 87 90 Respiratory Rate 16 18 Blood Pressure 106/54 L 130/60 Pulse Oximetry 99 100 Body Mass Index 21.4 Labs Results: 04/30/21 07:03 04/30/21 07:03 Labs: Laboratory Results - last 48 hr 05/12/21 08:59 25-OH Vitamin D Total 32 25-Hydroxy Vitamin D2 <4 25-Hydroxy Vitamin D3 32 Imaging Radiology Impressions: ITS Impressions Brain MRI 05/01/21 17:39 IMPRESSION: 1. There is a 3.4 cm relatively well marginated T2 hyperintense lesion centered in the deep white matter of the left frontal lobe. No associated enhancement. The etiology of this lesion remains somewhat nonspecific. An underlying low-grade glioma is a distinct consideration. However, an atypical appearance of nonspecific white matter insult could also be considered. A giant tumefactive perivascular space is considered less likely given the lack of T2 FLAIR suppression. 2. No acute intracranial abnormalities. No abnormal intracranial enhancement. Few additional nonspecific scattered white matter changes. Medications Medications Current Medications Generic Name Dose Route Start Last Admin Trade Name Freq PRN Reason Stop Dose Admin Acetaminophen 650 mg 04/29/21 20:50 Acetaminophen 325 Mg Tablet PO Q6H PRN Headache/Pain Mild Scale (1-3) Al Hydroxide/Mg Hydroxide 30 ml 04/29/21 20:50 Magnesium Hydrox/Alum Hydrox 30 Ml Oral.Susp PO Q6H PRN Heartburn/Nausea Baclofen 5 mg 04/29/21 21:00 05/17/21 20:52 Baclofen 10 Mg Tablet PO 5 mg TID TERRI Administration Bisacodyl 10 mg 04/29/21 22:04 Bisacodyl 10 Mg Supp.Rect MO BID PRN Constipation Clonazepam 0.5 mg 05/08/21 21:00 05/17/21 20:50 Clonazepam 0.5 Mg Tablet PO 0.5 mg BID TERRI Administration Clonazepam 0.5 mg 05/17/21 12:46 05/17/21 16:19 Clonazepam 0.5 Mg Tablet PO 0.5 mg BID PRN Administration anxiety/restlessness Docusate Sodium 100 mg 04/29/21 22:05 Docusate Sodium 100 Mg/10 Ml Liquid PO BID PRN Constipation Gabapentin 400 mg 04/30/21 09:00 05/17/21 20:51 Gabapentin 400 Mg Capsule PO 400 mg TID TERRI Administration Hydroxyzine HCl 25 mg 04/29/21 20:50 Hydroxyzine Hcl 25 Mg Tablet PO BEDTIME PRN Anxiety Magnesium Hydroxide 30 ml 04/29/21 20:50 Milk Of Magnesia 30 Ml Oral.Susp PO DAILY PRN Constipation Magnesium Oxide 800 mg 05/11/21 21:00 05/17/21 20:51 Magnesium Oxide 400 Mg Tablet PO 800 mg BEDTIME TERRI Administration Melatonin 3 mg 05/10/21 11:50 05/13/21 21:35 Melatonin 3 Mg Tablet PO 3 mg BEDTIME PRN Administration insomnia Melatonin 6 mg 05/11/21 21:00 05/17/21 20:52 Melatonin 3 Mg Tablet PO 6 mg BEDTIME TERRI Administration Multivitamins 1 tab 05/11/21 14:55 05/17/21 08:41 B-Complex With Vitamin C Tablet PO 1 tab DAILY TERRI Administration Nicotine Polacrilex 2 mg 04/29/21 20:50 Nicotine Polacrilex 2 Mg Gum BUCCAL Q2H PRN Nicotine Cravings Patient Own 1 each 04/30/21 21:00 05/17/21 20:54 Medication (Retaine EYE-BOTH 1 each Eye Drops) TID TERRI Administration Patient Own 1 each 05/10/21 09:00 05/17/21 16:20 Medication (Oculosin EYE-BOTH 1 each 1 Drop) 0900,1700 TERRI Administration Patient Own 1 each 05/10/21 09:00 05/17/21 16:20 Medication ( PO 1 each Hydroeyes 2 Caps) 0900,1700 TERRI Administration Pat Own Med ( 1 each 05/15/21 09:00 05/17/21 08:43 Selenium 200 Mcg) PO 1 each DAILY TERRI Administration Pat Own Med ( 1 each 05/15/21 09:00 05/17/21 08:43 Cholecalciferol ( PO 1 each Vitamin D3) 25 Mcg DAILY TERRI Administration Tablet) Pat Own Med (Zinc 1 each 05/15/21 09:00 05/17/21 08:44 Picolinate 25 Mg) PO 1 each DAILY TERRI Administration Pat Own Med ([place] 3 2 each 05/14/21 17:00 05/17/21 16:20 690 Mg) PO 2 each BIDWM TERRI Administration Patient Own Med ( 1 each 05/14/21 21:00 05/17/21 20:53 Hyaluronic Acid 100 PO 1 each Mg) BID TERRI Administration Paliperidone 6 mg 05/11/21 21:00 05/17/21 20:49 Paliperidone Er 3 Mg Tab.Er.24 PO 6 mg BEDTIME TERRI Administration Prazosin HCl 1 mg 05/17/21 12:44 Prazosin Hcl 1 Mg Capsule PO BEDTIME PRN Insomnia Protocol Trazodone HCl 50 mg 04/29/21 20:50 05/05/21 02:00 Trazodone Hcl 50 Mg Tablet PO 50 mg BEDTIME PRN Administration Insomnia Allergies Allergies Allergy/AdvReac Type Severity Reaction Status Date / Time Unable to Assess Allergy Verified 04/29/21 20:49 Assessment & Plan Assessment & Plan (1) Brain lesion: Status: Acute Code(s): G93.9 - Disorder of brain, unspecified Assessment and Plan: 55 years old woman with incidental finding of a left hemispheric brain lesion. As outlined in Radiology report, it was nonspecific in nature with multiple p ossibilities. At the same time it was relatively clear that this was a chronic lesion. A chronic ischemic infarction was also a possibility. In any case this lesion was not symptomatic and not the cause of her problems. Otherwise there was no significant finding on brain imaging. Typical recommendation for this type of lesion is to repeat brain scan in a year time, at least couple of times. After that, if lesion does not change, imaging can be done less frequently. No immediate action is needed on this finding at this time. (2) Delusional disorder, somatic type, first episode, currently in acute episode: Status: Acute Code(s): F22 - Delusional disorders Assessment and Plan: Dennisdol changed to Invega appears to have fixed somatic delusion hopefully there is some level of abnormal brain activity that may be contributing. Patient wi lling to do EEG. Discussed ways to cope with current belief system (3) Blepharitis: Status: Acute Code(s): H01.009 - Unspecified blepharitis unspecified eye, unspecified eyelid Greater than 50% of the session was spent on counseling and/or coordination of care Reason for contiued inpatient stay Substantial Risk for: harm to self and rapid decompensation
--- NOTE | 2021-05-18 | EEG_ITS ---
This is a 16-channel EEG with an EKG lead. The patient is reported awake during the tracing. Background EEG rhythm is about 10 hertz, 5 to 70 microvolt posteriorly, and lower amplitude fast anteriorly. Photic stimulation and hyperventilation were not done. Cardiac lead revealed tachycardia. No obvious sharp wave spikes or paroxysmal tendency noted. IMPRESSION: 1. Unremarkable EEG. 2. Sinus tachycardia. MD RENU Millan/MILLIE / [id number]
[2021-05-18 08:35] VITALS: BP 98/51; PULSE 82; RESP 17; TEMP 36.3; O2SAT 100
[2021-05-18] MEDS: Baclofen 10 MG TABLET 5 MG PO ×2 (08:47→21:24)
[2021-05-18] MEDS: Gabapentin 400 MG CAPSULE PO ×3 (08:48→21:24)
--- NOTE | 2021-05-18 11:42 | HO.PSYCHPN ---
Subjective Subjective Date of Service: 05/18/21 Reason For Visit: Uspecified Depressive Disorder Interim History: Pt reports she feels less anxious. She reports she is sleeping and eating well. She reports she tried to go to Tv room with peers but light was bothering her. She agreed to have EEG done while in hospital. She denies SI/HI. Looking forward to be discharged home tomorrow. Review of Systems Review of Systems unremarkable Cardiovascular: Denies chest pain, Denies rapid heart rate, Denies irregular heart rhythm, Denies lightheadedness and Denies dyspnea Respiratory: Denies dyspnea Gastrointestinal: Denies constipation and Denies diarrhea Musculoskeletal: Reports numbness and Reports tingling Reports numbness, Reports Other visual disturbances (light sensitivity), Reports tingling and Reports paresthesias Mental Status Exam Mental Status Exam Narrative: Appearance: casually groomed, fair hygiene, in NAD Behavior: calm, cooperative, minimal eye contact due to light sensitivity Psychomotor: no agitation or retardation noted Speech: clear, normal rate/rhythm/volume, spontaneous TP: linear TC: somatic delusions of effects of electromagnetic field sensitivity Mood: anxious Affect:congruent SI:denies HI:denies AH/VH:denies Delusions:somatic delusions Insight/judgment:poor x 2. Memory/cog: alert, oriented x 3. impaired due to psychiatric symptoms. Patient was more cooperative who was interested in having a dialogue and medical opinion Her thoughts about emfv remain fixed Denies self-harming thoughts Diagnostics Vital Signs (24Hr): Vital Signs - 24 hr 05/17/21 18:00 05/18/21 08:35 Temperature 97.8 F 97.4 F Pulse Rate 90 82 Respiratory Rate 18 17 Blood Pressure 130/60 98/51 L Pulse Oximetry 100 100 Body Mass Index 21.4 Labs Results: 04/30/21 07:03 04/30/21 07:03 Labs: Laboratory Results - last 48 hr 05/12/21 08:59 25-OH Vitamin D Total 32 25-Hydroxy Vitamin D2 <4 25-Hydroxy Vitamin D3 32 Imaging Radiology Impressions: ITS Impressions Brain MRI 05/01/21 17:39 IMPRESSION: 1. There is a 3.4 cm relatively well marginated T2 hyperintense lesion centered in the deep white matter of the left frontal lobe. No associated enhancement. The etiology of this lesion remains somewhat nonspecific. An underlying low-grade glioma is a distinct consideration. However, an atypical appearance of nonspecific white matter insult could also be considered. A giant tumefactive perivascular space is considered less likely given the lack of T2 FLAIR suppression. 2. No acute intracranial abnormalities. No abnormal intracranial enhancement. Few additional nonspecific scattered white matter changes. Medications Medications Current Medications Generic Name Dose Route Start Last Admin Trade Name Freq PRN Reason Stop Dose Admin Acetaminophen 650 mg 04/29/21 20:50 Acetaminophen 325 Mg Tablet PO Q6H PRN Headache/Pain Mild Scale (1-3) Al Hydroxide/Mg Hydroxide 30 ml 04/29/21 20:50 Magnesium Hydrox/Alum Hydrox 30 Ml Oral.Susp PO Q6H PRN Heartburn/Nausea Baclofen 5 mg 04/29/21 21:00 05/18/21 08:47 Baclofen 10 Mg Tablet PO 5 mg TID TERRI Administration Bisacodyl 10 mg 04/29/21 22:04 Bisacodyl 10 Mg Supp.Rect ID BID PRN Constipation Clonazepam 0.5 mg 05/17/21 12:46 05/17/21 16:19 Clonazepam 0.5 Mg Tablet PO 0.5 mg BID PRN Administration anxiety/restlessness Docusate Sodium 100 mg 04/29/21 22:05 Docusate Sodium 100 Mg/10 Ml Liquid PO BID PRN Constipation Gabapentin 400 mg 04/30/21 09:00 05/18/21 08:48 Gabapentin 400 Mg Capsule PO 400 mg TID TERRI Administration Hydroxyzine HCl 25 mg 04/29/21 20:50 Hydroxyzine Hcl 25 Mg Tablet PO BEDTIME PRN Anxiety Magnesium Hydroxide 30 ml 04/29/21 20:50 Milk Of Magnesia 30 Ml Oral.Susp PO DAILY PRN Constipation Magnesium Oxide 800 mg 05/11/21 21:00 05/17/21 20:51 Magnesium Oxide 400 Mg Tablet PO 800 mg BEDTIME TERRI Administration Melatonin 3 mg 05/10/21 11:50 05/13/21 21:35 Melatonin 3 Mg Tablet PO 3 mg BEDTIME PRN Administration insomnia Melatonin 6 mg 05/11/21 21:00 05/17/21 20:52 Melatonin 3 Mg Tablet PO 6 mg BEDTIME TERRI Administration Multivitamins 1 tab 05/11/21 14:55 05/18/21 08:48 B-Complex With Vitamin C Tablet PO 1 tab DAILY TERRI Administration Nicotine Polacrilex 2 mg 04/29/21 20:50 Nicotine Polacrilex 2 Mg Gum BUCCAL Q2H PRN Nicotine Cravings Patient Own 1 each 04/30/21 21:00 05/18/21 08:53 Medication (Retaine EYE-BOTH 1 each Eye Drops) TID TERRI Administration Patient Own 1 each 05/10/21 09:00 05/18/21 08:53 Medication (Oculosin EYE-BOTH 1 each 1 Drop) 0900,1700 TERRI Administration Patient Own 1 each 05/10/21 09:00 05/18/21 08:52 Medication ( PO 1 each Hydroeyes 2 Caps) 0900,1700 TERRI Administration Pat Own Med ( 1 each 05/15/21 09:00 05/18/21 08:51 Selenium 200 Mcg) PO 1 each DAILY TERRI Administration Pat Own Med ( 1 each 05/15/21 09:00 05/18/21 08:50 Cholecalciferol ( PO 1 each Vitamin D3) 25 Mcg DAILY TERRI Administration Tablet) Pat Own Med (Zinc 1 each 05/15/21 09:00 05/18/21 08:51 Picolinate 25 Mg) PO 1 each DAILY TERRI Administration Pat Own Med ([place] 3 2 each 05/14/21 17:00 05/18/21 08:49 690 Mg) PO 2 each BIDWM TERRI Administration Patient Own Med ( 1 each 05/14/21 21:00 05/18/21 08:52 Hyaluronic Acid 100 PO 1 each Mg) BID TERRI Administration Paliperidone 6 mg 05/11/21 21:00 05/17/21 20:49 Paliperidone Er 3 Mg Tab.Er.24 PO 6 mg BEDTIME TERRI Administration Prazosin HCl 1 mg 05/17/21 12:44 Prazosin Hcl 1 Mg Capsule PO BEDTIME PRN Insomnia Protocol Trazodone HCl 50 mg 04/29/21 20:50 05/05/21 02:00 Trazodone Hcl 50 Mg Tablet PO 50 mg BEDTIME PRN Administration Insomnia Allergies Allergies Allergy/AdvReac Type Severity Reaction Status Date / Time Unable to Assess Allergy Verified 04/29/21 20:49 Assessment & Plan Assessment & Plan (1) Brain lesion: Status: Acute Code(s): G93.9 - Disorder of brain, unspecified Assessment and Plan: 55 years old woman with incidental finding of a left hemispheric brain lesion. As outlined in Radiology report, it was nonspecific in nature with multiple possibilities. At the same time it was relatively clear that this was a chronic lesion. A chronic ischemic infarction was also a possibility. In any case this lesion was not symptomatic and not the cause of her problems. Otherwise there was no significant finding on brain imaging. Typical recommendation for this type of lesion is to repeat brain scan in a year time, at least couple of times. After that, if lesion does not change, imaging can be done less frequently. No immediate action is needed on this finding at this time. (2) Delusional disorder, somatic type, first episode, currently in acute episode: Status: Acute Code(s): F22 - Delusional disorders Assessment and Plan: Switched haldol to paliperidone as haldol appeared to cause dystonia. (3) Blepharitis: Status: Acute Code(s): H01.009 - Unspecified blepharitis unspecified eye, unspecified eyelid Greater than 50% of the session was spent on counseling and/or coordination of care Reason for contiued inpatient stay Substantial Risk for: inability to function
[2021-05-18] MEDS: Magnesium Oxide 400 MG TABLET 800 MG PO (21:23)
[2021-05-18] MEDS: Melatonin 3 MG TABLET 6 MG PO (21:23)
[2021-05-18] MEDS: Paliperidone ER 3 MG TAB.ER.24 6 MG PO (21:23)
[2021-05-19] MEDS: Gabapentin 400 MG CAPSULE PO (08:26)
[2021-05-19] MEDS: Baclofen 10 MG TABLET 5 MG PO (08:26)
[2021-05-19 08:39] VITALS: BP 124/63; PULSE 93; RESP 17; O2SAT 98
[2021-05-19] MEDS: clonazePAM 0.5 MG TABLET PO (13:03)
--- NOTE | 2021-05-19 13:14 | PM.PSYDC ---
DS: Providers Provider Date of Service: 05/19/21 Date of admission: 04/29/21 18:51 Primary care physician: Unknown Physician Consults: 04/29/21 20:50 Consult to Hospitalist Routine Consulting Provider: Hospitalist Reason For Exam: Admission from another hospital - protocol 05/02/21 20:14 Consult to Neurology Routine Consulting Provider: [facility] Reason for consultation: Abnormal MRI, acute psychosis Has provider been notified: No 05/12/21 16:51 Consult to Rheumatology Routine Consulting Provider: Ambrose Segura Reason for consultation: ? lupus Has provider been notified: Yes DS: Diagnosis Discharge Diagnosis (1) Brain lesion: Status: Acute (2) Delusional disorder, somatic type, first episode, currently in acute episode: Status: Acute (3) Blepharitis: Status: Acute DS: Medications Discharge Medications Home Medications: Home Medications Medication Instructions Recorded Confirmed Artificial Tears 2 drp INTRAOCULAR QID PRN 04/29/21 04/29/21 Oculocin 1 drp INTRAOCULAR BID 04/29/21 Retaine VISION 1 drp INTRAOCULAR TID 04/29/21 04/29/21 melatonin 6 mg PO 04/29/21 Previous Rx's Medication Instructions Recorded clonazepam 0.5 mg PO BID PRN #14 tab 05/19/21 clonazepam 2 mg PO DAILY PRN #1 tab 05/19/21 gabapentin 400 mg PO TID #21 cap 05/19/21 paliperidone [Invega] 6 mg PO BEDTIME #10 tab 05/19/21 Discharge Plan Discharge Patient Disposition: Home, Self-Care Discharge Diagnosis: Delusional Disorder MAGO Referrals: Therapist: Susan Quijano ([facility]) [Other] - 05/21/21 2:15 pm Psych Prescriber: Gisella Morrell ([facility]) [Other] - 06/16/21 12:30 pm Psych Prescriber: Gisella Morrell ([facility]) [Other] - 07/13/21 10:10 am Bree Edgar MD [Physician] - 05/25/21 1:00 pm Discharge Medications: New baclofen 5 mg tablet 5 mg PO BID Qty: 14 RF: 0 paliperidone [Invega] 6 mg tablet extended release 24hr 6 mg PO QAM Qty: 30 RF: 1 clonazepam 0.5 mg tablet 0.5 mg PO TID Qty: 90 RF: 0 gabapentin 400 mg capsule 400 mg PO TID Qty: 90 RF: 0 Continued Retaine VISION drops 1 drp intraocular TID RF: 0 melatonin tablet 6 mg PO RF: 0 Artificial Tears drops 2 drp intraocular QID PRN (Reason: Dry Eye(S)) RF: 0 Oculocin drops 1 drp intraocular BID RF: 0 Discontinued baclofen 5 mg Tablet 5 mg PO TID RF: 0 duloxetine capsule 20 mg PO DAILY RF: 0 gabapentin capsule 400 mg PO TID RF: 0 quetiapine tablet 25 mg PO DAILY RF: 0 Colace liquid 100 mg PO BID PRN (Reason: Constipation) RF: 0 bisacodyl suppository 10 mg BID PRN (Reason: Constipation) RF: 0 Discharge Orders: Discharge Order (Routine); Ordered 05/19/21 Ordered By: Sherrie Cardenas Diet: regular diet Activity on Discharge: As tolerated Stand Alone Forms: Patient Portal Discharge page, Community Support Care Plan Goals: 1. Maintain safety 2. decrease anxiety Health Concerns: Follow up with PCP, neurologist and psychiatric orderly Plan of Treatment: 1. Take medications as prescribed 2. Go to nearest ED or call 911 in event of emergency Assessment: No SI/HI. Less anxiety. Discharge Date/Time: 05/19/21 14:33 Mental Status Exam Mental Status Exam Narrative: Appearance: casually groomed, fair hygiene, in NAD Behavior: calm, cooperative, minimal eye contact due to light sensitivity Psychomotor: no agitation or retardation noted Speech: clear, normal rate/rhythm/volume, spontaneous TP: linear TC: somatic delusions of effects of electromagnetic field sensitivity Mood: anxious Affect:congruent SI:denies HI:denies AH/VH:denies Delusions:somatic delusions Insight/judgment:poor x 2. Memory/cog: alert, oriented x 3. Patient was more cooperative who was interested in having a dialogue and medical opinion Her thoughts about emfv remain fixed Denies self-harming thoughts Data Data Completed and Pending Completed studies during hospitalization [Text1]: 05/12/21 08:59 25-OH Vitamin D Total 32 25-Hydroxy Vitamin D2 <4 25-Hydroxy Vitamin D3 32 Imaging Diagnostic Imaging Impressions Brain MRI 05/01/21 17:39 IMPRESSION: 1. There is a 3.4 cm relatively well marginated T2 hyperintense lesion centered in the deep white matter of the left frontal lobe. No associated enhancement. The etiology of this lesion remains somewhat nonspecific. An underlying low-grade glioma is a distinct consideration. However, an atypical appearance of nonspecific white matter insult could also be considered. A giant tumefactive perivascular space is considered less likely given the lack of T2 FLAIR suppression. 2. No acute intracranial abnormalities. No abnormal intracranial enhancement. Few additional nonspecific scattered white matter changes. DS: Summary Hospital Course Hospital Course: Ms. Hou is a 55 year-old woman who was brought via EMS to [facility] on 04/21/2021 after her friend found her unconscious. Apparently, pt had intentional overdose with gabapentin, baclofen, seroque as suicide attempt. At [facility], pt was intubated to protect airway, transferred to ICU. During hospital course at [facility], pt found to have mild respiratory alkalosis, hypernatremia, hypokalemia, radiopaque density in RUQ, leukocytosis and CT scan of head showed focal periventricular white matter hypoattenuation in the left frontal lobe. Pt was extubated on 04/22/2021. 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 Once pt was more alert, she verbalized that OD was suicide attempt. On the unit, Ms. 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 She reports because of this she has overall sense of numbness and severe light sensitivity. Pt reports that she had seen a naturopathic provider who recommended to be away from all electric currents. She reports she decided to go somewhere [place], [place] and slept there in the car. She reports a close friend was going to see her daily and was asking her to please come with her to her apartment. She apparently had asked friend to bring her to her apartment to get extra medications, which friend found unsual as pt was not suppose to take other medications than the ones she had with her. However, pt insisted. Pt reports that overdose was not planned. She reports that she quickly became very overwhelmed due to physical symptoms (all over sensation of tingling and photosensitivity) and became suicidal and OD. On the unit, pt denies suicidal ideation. She continues to report physical symptoms as severe. She notes that she has not been seen by neurologist. She also reports medication such as seroquel are damaging my eyes. She reports she thinks most medications are probably toxic and she is skeptic of taking them. She also endorses feeling very anxious. She asks to be discharged soon as she thinks electromagnetic sensitivity will be worse in the hospital. Medical Evaluation Reviewed: Yes Pt was medically cleared once hemodynamically stable, no signs of adrenal insufficiency. Pt was recommended to do MRI for further evaluation of focal periventricular white matter- but while at [facility] she declined. DDx include white matter infarct, demyelinating disease, less likely malignacy per [facility] d/c note HOSPITAL COURSE On the unit, Ms. Hou presented as very anxious, somatically preoccupied about light sensitivity and overall weakness. She does have blepharitis which could account for eye dryness and light sensitivity. She reported having sensitivity to electro magnetic peterson and this causing physical symptoms. Pt insisted she couldn't be around electrical towers or phones or computers. She reported that she wanted to be in a farm. She does admit that even thought she went somewhere remote she continues to feel very anxious preoccupied with somatic concerns, which in terms triggered somewhat impulsive reaction to overdose on medications. We discussed risks, benefits and alternative treatment options. She ahd been on risperidone in the past but decline restarting this medication as she thought it worsened physical symptoms (weakness/light sensitivity).Pt initially was started on olanzapine which appeared to be partially beneficial in that she was slightly less anxious but she reported increased dryness in eyes and mouth with this medication and asked to try different one. She was then tried on low dose haldol but did have dystonic reaction. She was finally started on paliperidone which she tolerated well and was titrated to 6mg po daily. She presented slightly less anxious with less ruminations about somatic concerns and insistence on electromagnetic sensitivity. She denied suicidal or homicidal ideation. She was sleeping and eating well. While in the unit, she was mostly in her room, minimally interactive with peers. She did go out for fresh air daily, which she found beneficial. While in unit, she had serious of medical work up including MRI, which was recommended after head CT had shown periventricular hypoattenuation on left frontal part of brain. She was seen by neurology who recommended regular f/u to monitor changes of such finding. Status at Discharge Cognitive/behavioral status at discharge: No SI/HI. Less anxious but somatic delusional content persists. Functional status at discharge: independent ambulation Overall status at discharge: patient is progressing back to baseline Time Spent with Patient Time attestation: Total time spent providing and/or coordinating discharge services: Time spent: Greater than 30 minutes
--- NOTE | 2021-05-19 14:33 | PC.NURSE ---
PT aware and ready for discharge. Pt mood bright, denies SI/HI, pt future focused, aware of scheduled follow up appointments with PCP and therapist. Pt reporting decreased depression and anxiety. Belongings returned, Pt ambulated off unit with steady gait.
== END 2021-05-19 14:33 | disposition home or self-care (01) | DRG 882 ==
PROVIDERS: Psychiatry & Neurology Psychiatry; Admitting Provider Psychiatry & Neurology Psychiatry; Visit Provider Social Worker
DX: F45.0 Somatization disorder (principal); F41.9 Anxiety disorder, unspecified; G93.9 Disorder of brain, unspecified; H01.009 Unspecified blepharitis unspecified eye, unspecified eyelid; F22 Delusional disorders; Z91.5 Personal history of self-harm; Z79.899 Other long term (current) drug therapy
CPT/HCPCS: 36415; 70553; 80053; 80061; 82306; 83036; 84443; 85025; 85652; 86038; 86039; 86235; 95816; A9585